=== PATIENT | male | born 1945 | race Caucasian/White ===

== ENCOUNTER 2016-11-16 16:36 | Inpatient (IN) | payer MEDICARE, OTHER ==
[~2016-11-16] VITALS: Ht 175.3 cm; Wt 80.2 kg
[2016-11-16 20:00] VITALS: BP 124/69; PULSE 84; RESP 20; Ht 175.3 cm; Wt 80.2 kg
[2016-11-16 20:30] VITALS: BP 107/65; RESP 18
[2016-11-16] MEDS ORDERED: BISACODYL 10 MG SUPP PR PRN (20:30)
[2016-11-16] MEDS ORDERED: OXYCODONE/ACETAMINOPHEN (5/325) TAB PO PRN (20:30)
[2016-11-16] MEDS ORDERED: MAGNESIUM HYDROXIDE 30ML CUP PO PRN (20:30)
[2016-11-16] MEDS: DUTASTERIDE 0.5 MG CAP PO SCH (21:58)
[2016-11-16] MEDS: ATORVASTATIN 10 MG TAB PO SCH (21:58)
[2016-11-16] MEDS: DOCUSATE SODIUM 100 MG CAP PO SCH (21:58)
[2016-11-16] MEDS: PHENYTOIN 100 MG CAP PO SCH (21:58)
[2016-11-16] MEDS: SENNA TAB PO SCH (21:59)
[2016-11-17] LABS: ADD UMIC NO; UR ASCORBIC ACID NEGATIVE (NEGATIVE); UR BILIRUBIN (Dip) NEGATIVE (NEGATIVE); UR BLOOD (Dip) NEGATIVE (NEGATIVE); UR CLARITY CLEAR (CLEAR); UR COLOR YELLOW (YELLOW); UR GLUCOSE (Dip) NEGATIVE (NEGATIVE); UR KETONES (Dip) NEGATIVE (NEGATIVE); UR LEUKOCYTE ESTERASE (Dip) NEGATIVE Leu/ul (NEGATIVE); UR NITRITE (Dip) NEGATIVE (NEGATIVE); UR SPECIFIC GRAVITY (Dip) 1.015 (1.003-1.030); UR TOTAL PROTEIN (Dip) NEGATIVE (NEGATIVE); UR UROBILINOGEN (Dip) NEGATIVE (NEGATIVE)
[2016-11-17] MEDS: PHENYTOIN 100 MG CAP PO SCH ×3 (06:35→21:32)
[2016-11-17 07:30] VITALS: BP 151/67; RESP 18
[2016-11-17 07:41] LABS: BASOPHILS % 0.2 % (0.0-2.0); EOSINOPHILS # 0.3 10^3/ul (0.0-0.5); EOSINOPHILS % 2.4 % (0.0-7.0); HEMATOCRIT 27.5 % (42.0-52.0); HEMOGLOBIN 8.6 g/dl (14.0-18.0); LYMPHOCYTES # 1.1 10^3/ul (0.8-2.9); MEAN CORPUSCULAR HEMOGLOBIN 28.7 pg (29.0-33.0); MEAN CORPUSCULAR HGB CONC 31.3 g/dl (32.0-37.0); MEAN CORPUSCULAR VOLUME 91.7 fl (82.0-101.0); MEAN PLATELET VOLUME 9.4 fl (7.4-10.4); MONOCYTES % 7.7 % (0.0-11.0); NEUTROPHIL # 9.8 10^3/ul (1.6-7.5); PLATELET COUNT 494 10^3/UL (140-415); RED CELL DISTRIBUTION WIDTH 14.6 % (11.5-14.5); WHITE BLOOD COUNT 12.3 10^3/ul (4.8-10.8)
[2016-11-17 08:05] LABS: ALBUMIN 3.7 g/dl (3.3-4.9); ALBUMIN/GLOBULIN RATIO 1.27; BILIRUBIN,INDIRECT 0.2 mg/dl (0-1.1); BILIRUBIN,TOTAL 0.2 mg/dl (0.2-1.3); CALCIUM 9.4 mg/dl (8.4-10.2); CREATININE 0.9 mg/dl (0.61-1.24); POTASSIUM 4.3 mmol/L (3.5-5.1); TOTAL PROTEIN 6.6 g/dl (6.1-8.1)
--- NOTE | 2016-11-17 08:23 | CONS ---
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 Status post intubation 3. BPH 4. History of cervical fusion 5. History of bilateral hip surgery 6. Hypertension 7. Seizure disorder 8. Impairments in self-care, mobility and cognition. PLAN: The patient has been admitted for comprehensive interdisciplinary acute rehab and is anticipated to tolerate 3 hours of daily therapy in divided doses for at least 5/7 days a week. The treatment plan will include: 1. Physical therapy to focus on bed mobility, transfers, and household ambulation with the goal of having the patient reach a standby assist at the wheelchair level, minimal assist for ambulation. 2. Occupational therapy to focus on hygiene, grooming, dressing, bathing, and toileting activities with the goal of having the patient reach a standby assist level at the wheelchair level. 3. Speech therapy for full cognitive assessment and retraining in addition to dysphagia management with the goal of having the patient return to baseline cognition and meet nutritional needs by mouth. 4. Rehabilitation nursing for carryover of therapeutic interventions, the goal of continent of bowel and bladder, the goal of pain adequately managed on oral medications. ESTIMATED LENGTH OF STAY: 14 days. DISPOSITION GOAL: Home. Rehabilitation Barrier: Weakness Intervention for barrier: Interdisciplinary rehab care I acknowledge that I performed a full physical examination on this patient within 24 hours of admission to the rehabilitation unit and believe the patient is a good candidate for comprehensive interdisciplinary rehab care and is anticipated to make reasonable goals in a reasonable period of time as outlined above. Consultation Date/Type/Reason Admit Date/Time Nov 16, 2016 at 18:40 Type of Consultation: Rehabilitation Reason for Consultation Rehabilitation Post Admission Physician Evaluation Patient is a pleasant 71-year-old gentleman with a history of hypertension and BPH who is admitted for aortic aneurysm repair. Patient's postoperative course was notable for seizure activity and weakness. MRI was performed and demonstrated bilateral cortical infarct. Patient did require intubation and was successfully extubated. Patient noted to have significant impairments in self-care and mobility as compared to baseline and has been cleared to transfer to the rehabilitation unit for conference of interdisciplinary rehab care. Past Surgical History FUNCTIONAL HISTORY: Prior to recent events, he was independent in self-care tasks and mobility. Currently, patient requires moderate for self-care and mobility tasks. I have reviewed the preadmission screen and the patient's current functional status is consistent with the preadmission screen. SOCIAL HISTORY: The patient lives at home and hopes to return there upon discharge. Social History Smoking Status: Never smoker Exam/Review of Systems Vital Signs Vitals Vital Signs Date Time Temp Pulse Resp B/P Pulse Ox O2 Delivery O2 Flow Rate FiO2 11/16/16 20:30 97.8 85 18 107/65 92 11/16/16 20:00 Room Air Intake and Output 11/16/16 11/16/16 11/17/16 15:00 23:00 07:00 Intake Total 1350 ml Output Total 650 ml Balance 700 ml Exam PHYSICAL EXAMINATION: VITAL SIGNS: The patient is currently afebrile with stable vital signs. HEENT: The extraocular motions are intact. Oropharynx is clear. LUNGS: Clear anteriorly. CARDIAC: S1, S2. ABDOMEN: Soft, nontender, positive bowel sounds. NEUROLOGIC: Patient is awake and alert, is oriented to person,place and time, will follow simple 1-step commands. He demonstrate good strength in the left upper extremity 3+ strength in the left lower external 4+ strength in the right lower extremity, 2- minus strength in the right upper extremity. He has impaired dynamic balance Results Result Diagram: 11/17/16 0616 11/17/16 0616 Results 24 hrs Laboratory Tests Test 11/16/16 20:00 11/17/16 06:16 Urine Color YELLOW Urine Clarity CLEAR Urine pH 6.0 Urine Specific [place] 1.015 Urine Ketones NEGATIVE Urine Nitrite NEGATIVE Urine Bilirubin NEGATIVE Urine Urobilinogen NEGATIVE Urine Leukocyte Esterase NEGATIVE Urine Hemoglobin NEGATIVE Urine Glucose NEGATIVE Urine Total Protein NEGATIVE White Blood Count 12.3 H Red Blood Count 3.00 L Hemoglobin 8.6 L Hematocrit 27.5 L Mean Corpuscular Volume 91.7 Mean Corpuscular Hemoglobin 28.7 L Mean Corpuscular Hemoglobin Concent 31.3 L Red Cell Distribution Width 14.6 H Platelet Count 494 H Mean Platelet Volume 9.4 Neutrophils % 79.0 H Lymphocytes % 9.0 L Monocytes % 7.7 Eosinophils % 2.4 Basophils % 0.2 Nucleated Red Blood Cells % 0.0 Neutrophils # 9.8 H Lymphocytes # 1.1 Monocytes # 1.0 H Eosinophils # 0.3 Basophils # 0.0 Nucleated Red Blood Cells # 0.0 Sodium Level 143 Potassium Level 4.3 Chloride Level 107 Carbon Dioxide Level 22 Anion Gap 18 H Blood Urea Nitrogen 15 Creatinine 0.90 Glucose Level 109 Calcium Level 9.4 Total Bilirubin 0.2 Direct Bilirubin 0.00 Indirect Bilirubin 0.2 Aspartate Amino Transf (AST/SGOT) 69 H Alanine Aminotransferase (ALT/SGPT) 104 H Alkaline Phosphatase 140 H Total Protein 6.6 Albumin 3.7 Globulin 2.90 Albumin/Globulin Ratio 1.27 Medications Medications Current Medications Aspirin (Aspirin) 81 mg DAILY PO ; Start 11/17/16 at 09:00 Atorvastatin Calcium (Lipitor) 10 mg DAILY@21 PO Last administered on 21:58; Admin Dose 10 MG; Start 11/16/16 at 21:00 Phenytoin (Dilantin) 100 mg Q8 PO Last administered on 11/17/16 06:35; Admin Dose 100 MG; Start 11/16/16 at 22:00 Dutasteride (Avodart) 0.5 mg HS PO Last administered on 11/16/16 21:58; Admin Dose 0.5 MG; Start 11/16/16 at 21:00 Escitalopram Oxalate (Lexapro) 10 mg DAILY@13 PO ; Start 11/17/16 at 13:00 Oxycodone/ Acetaminophen (Percocet (5/ 325)) 1 tab Q4H PRN PO PAIN; Start 11/16 at 20:30 Valsartan (Diovan) 160 mg DAILY PO ; Start 11/17/16 at 09:00 Hydrochlorothiazide (Hydrochlorothiazide) 25 mg DAILY PO ; Start 11/17/16 at 09: 00 Magnesium Hydroxide (Milk Of Mag) 30 ml Q12H PRN PO CONSTIPATION; Start at 20:30 Lactulose (Enulose) 20 gm Q24H PRN PO CONSTIPATION; Start 11/16/16 at 20:30 Senna (Senokot) 1 tab HS PO Last administered on 11/16/16 21:59; Admin Dose 1 TAB; Start 11/16/16 at 21:00 Docusate Sodium (Colace) 100 mg BID PO Last administered on 11/16/16 21:58; Admin Dose 100 MG; Start 11/16/16 at 21:00 Acetaminophen (Tylenol Tab) 650 mg Q4H PRN PO PAIN; Start 11/16/16 at 20:30 Bisacodyl (Dulcolax Supp) 10 mg Q24H PRN [place] CONSTIPATION; Start 11/16/16 at 20: 30 HERNANDEZ PASTRANA MD Nov 17, 2016 08:23
[2016-11-17] MEDS: ASPIRIN 81 MG TAB PO SCH (08:50)
[2016-11-17] MEDS: DOCUSATE SODIUM 100 MG CAP PO SCH ×2 (08:50→21:32)
[2016-11-17] MEDS: VALSARTAN 160 MG TAB PO SCH (08:51)
[2016-11-17] MEDS: HYDROCHLOROTHIAZIDE 25 MG TAB PO SCH (08:52)
--- NOTE | 2016-11-17 10:23 | HP ---
Date/Time of Note Date/Time of Note DATE: 11/17/16 TIME: 10:22 Assessment/Plan VTE Prophylaxis VTE Prophylaxis Intervention: ambulation Lines/Catheters Urinary Cath still in place: No Assessment/Plan Assessment/Plan 1. 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 Plan is to continue current treatment plan continue medical management continue low-dose aspirin continue PT OT per acute rehab 2. Hypertension. Blood pressure control. Continue current blood pressure regimen 3. Dyslipidemia continue statin therapy 4. Aortic aneurysm status post surgical repair 5. BPH continue medical management 6. Seizure. Continue Dilantin 7. Depression continue Lexapro 8 GI DVT prophylaxis. Continue PPI and SCDs 9 mild leukocytosis. Recheck CBC monitor follow-up urine call 10. Anemia monitor H&H levels HPI/ROS Admit Date/Time Admit Date/Time Nov 16, 2016 at 18:40 Hx of Present Illness Acute CVA 71-year-old male who underwent a Lucius procedure for ascending aortic aneurysm. Following the procedure patient noted to have atelectasis. Patient had MRI of the brain which showed distal cortical infarct bilaterally. The patient also noted to have severe right sided weakness of the upper extremity moderate weakness of the left lower extremity. The patient went into respiratory failure was subsequently intubated. The patient was eventually stabilized extubated. The patient was seen by neurology. He was eventually stabilized and then transferred to [facility] on acute rehab for continued care. Upon my evaluation at this time patient at this time currently stable complaining about weakness. But denies any fevers chills nausea vomiting ROS 14 point review of systems conducted pertinent positives stated in HPI PMH/Family/Social Past Medical History Per HPI Past Surgical History Status post aortic aneurysm repair Social History Smoking Status: Never smoker Exam/Review of Systems Vital Signs Vitals Vital Signs Date Time Temp Pulse Resp B/P Pulse Ox O2 Delivery O2 Flow Rate FiO2 11/16/16 20:30 97.8 85 18 107/65 92 11/16/16 20:00 Room Air Intake and Output 11/16/16 11/16/16 11/17/16 15:00 23:00 07:00 Intake Total 1350 ml Output Total 650 ml Balance 700 ml Exam Exam HEENT head is normocephalic pupils are reactive to light Cardiovascular heart is regular rate Lungs show diminished breath sounds at bases otherwise clear Abdomen soft nontender palpation rebound Extremities are negative for clubbing cyanosis no edema Dermatologically no rashes Musculoskeletal no joint effusion Neurologically patient has weakness right upper extremity left lower extremity. Labs Result Diagram: 11/17/16 0616 11/17/16 0616 Medications Medications Current Medications Aspirin (Aspirin) 81 mg DAILY PO Last administered on 11/17/16 08:50; Admin Dose 81 MG; Start 11/17/16 at 09:00 Atorvastatin Calcium (Lipitor) 10 mg DAILY@21 PO Last administered on 21:58; Admin Dose 10 MG; Start 11/16/16 at 21:00 Phenytoin (Dilantin) 100 mg Q8 PO Last administered on 11/17/16 06:35; Admin Dose 100 MG; Start 11/16/16 at 22:00 Dutasteride (Avodart) 0.5 mg HS PO Last administered on 11/16/16 21:58; Admin Dose 0.5 MG; Start 11/16/16 at 21:00 Escitalopram Oxalate (Lexapro) 10 mg DAILY@13 PO ; Start 11/17/16 at 13:00 Oxycodone/ Acetaminophen (Percocet (5/ 325)) 1 tab Q4H PRN PO PAIN; Start 11/16 at 20:30 Valsartan (Diovan) 160 mg DAILY PO Last administered on 11/17/16 08:51; Admin Dose 160 MG; Start 11/17/16 at 09:00 Hydrochlorothiazide (Hydrochlorothiazide) 25 mg DAILY PO Last administered on 08:52; Admin Dose 25 MG; Start 11/17/16 at 09:00 Magnesium Hydroxide (Milk Of Mag) 30 ml Q12H PRN PO CONSTIPATION; Start at 20:30 Lactulose (Enulose) 20 gm Q24H PRN PO CONSTIPATION; Start 11/16/16 at 20:30 Senna (Senokot) 1 tab HS PO Last administered on 11/16/16 21:59; Admin Dose 1 TAB; Start 11/16/16 at 21:00 Docusate Sodium (Colace) 100 mg BID PO Last administered on 11/17/16 08:50; Admin Dose 100 MG; Start 11/16/16 at 21:00 Acetaminophen (Tylenol Tab) 650 mg Q4H PRN PO PAIN; Start 11/16/16 at 20:30 Bisacodyl (Dulcolax Supp) 10 mg Q24H PRN [place] CONSTIPATION; Start 11/16/16 at 20: 30 WILFREDO HALLMAN DO Nov 17, 2016 10:23
[2016-11-17] MEDS: ESCITALOPRAM 10 MG TAB PO SCH (14:06)
[2016-11-17 20:12] VITALS: BP 128/65; RESP 18
[2016-11-17] MEDS: SENNA TAB PO SCH (21:00)
[2016-11-17] MEDS: DUTASTERIDE 0.5 MG CAP PO SCH (21:31)
[2016-11-17] MEDS: ATORVASTATIN 10 MG TAB PO SCH (21:32)
[2016-11-18] MEDS: PHENYTOIN 100 MG CAP PO SCH ×3 (06:41→22:31)
[2016-11-18 07:24] LABS: CALCIUM 9.7 mg/dl (8.4-10.2); CREATININE 0.97 mg/dl (0.61-1.24); MAGNESIUM 2.3 mg/dl (1.7-2.5); PHOSPHORUS 3.8 mg/dl (2.5-4.9); POTASSIUM 3.9 mmol/L (3.5-5.1)
[2016-11-18 08:18] LABS: BASOPHILS % 0.3 % (0.0-2.0); EOSINOPHILS # 0.3 10^3/ul (0.0-0.5); EOSINOPHILS % 1.8 % (0.0-7.0); HEMATOCRIT 28.7 % (42.0-52.0); HEMOGLOBIN 9.3 g/dl (14.0-18.0); LYMPHOCYTES % 6.7 % (15.0-51.0); MEAN CORPUSCULAR HEMOGLOBIN 29.2 pg (29.0-33.0); MEAN CORPUSCULAR HGB CONC 32.4 g/dl (32.0-37.0); MEAN CORPUSCULAR VOLUME 90.3 fl (82.0-101.0); MEAN PLATELET VOLUME 9.4 fl (7.4-10.4); MONOCYTES % 6.9 % (0.0-11.0); NEUTROPHIL # 12.1 10^3/ul (1.6-7.5); NEUTROPHILS % 83.1 % (39.0-77.0); PLATELET COUNT 574 10^3/UL (140-415); RED BLOOD COUNT 3.18 10^6/ul (4.70-6.10); RED CELL DISTRIBUTION WIDTH 14.2 % (11.5-14.5); WHITE BLOOD COUNT 14.6 10^3/ul (4.8-10.8)
[2016-11-18 08:59] LABS: ADD SCAN DIFF NO
[2016-11-18] MEDS: DOCUSATE SODIUM 100 MG CAP PO SCH ×2 (09:05→20:36)
[2016-11-18] MEDS: ASPIRIN 81 MG TAB PO SCH (09:06)
[2016-11-18 09:10] VITALS: BP 103/61; RESP 18
[2016-11-18] MEDS: HYDROCHLOROTHIAZIDE 25 MG TAB PO SCH (09:10)
[2016-11-18] MEDS: VALSARTAN 160 MG TAB PO SCH (09:10)
--- NOTE | 2016-11-18 10:14 | PN ---
Date/Time of Note Date/Time of Note DATE: 11/18/16 TIME: 10:11 Assessment/Plan VTE Prophylaxis VTE Prophylaxis Intervention: ambulation Lines/Catheters Urinary Cath still in place: No Assessment/Plan Chief Complaint/Hosp Course 1. 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 Plan is to continue current treatment plan continue medical management continue low-dose aspirin continue PT OT per acute rehab 2. Hypertension. Blood pressure control. Continue current blood pressure regimen 3. Dyslipidemia continue statin therapy 4. Aortic aneurysm status post surgical repair 5. BPH continue medical management 6. Seizure. Continue Dilantin 7. Depression continue Lexapro 8 GI DVT prophylaxis. Continue PPI and SCDs 9 leukocytosis. -Etiology unclear, possibly reactive, low suspicion for infection. Patient is afebrile. Urine culture is negative. -Repeat CBC in a.m. Check pro-calcitonin level -If no improvement will get an ID consult for evaluation 10. Anemia monitor H&H levels Problems: Subjective 24 Hr Interval Summary Free Text/Dictation Patient clinically stable. No fever overnight. Patient denies any dysuria hematuria. No shortness of breath. Exam/Review of Systems Vital Signs Vitals Vital Signs Date Time Temp Pulse Resp B/P Pulse Ox O2 Delivery O2 Flow Rate FiO2 11/18/16 09:10 98.5 18 103/61 94 Room Air 11/17/16 20:12 89 Intake and Output 11/17/16 11/17/16 11/18/16 15:00 23:00 07:00 Intake Total 360 ml 840 ml 350 ml Output Total 250 ml 440 ml 602 ml Balance 110 ml 400 ml -252 ml Exam HEENT head is normocephalic pupils are reactive to light Cardiovascular heart is regular rate Lungs show diminished breath sounds at bases otherwise clear Abdomen soft nontender palpation rebound Extremities are negative for clubbing cyanosis no edema Dermatologically no rashes Musculoskeletal no joint effusion Neurologically patient has weakness right upper extremity left lower extremity. Results Result Diagram: 11/18/16 0635 11/18/16 0635 Results 24 hrs Laboratory Tests Test 11/18/16 06:35 White Blood Count 14.6 H Red Blood Count 3.18 L Hemoglobin 9.3 L Hematocrit 28.7 L Mean Corpuscular Volume 90.3 Mean Corpuscular Hemoglobin 29.2 Mean Corpuscular Hemoglobin Concent 32.4 Red Cell Distribution Width 14.2 Platelet Count 574 H Mean Platelet Volume 9.4 Neutrophils % 83.1 H Lymphocytes % 6.7 L Monocytes % 6.9 Eosinophils % 1.8 Basophils % 0.3 Nucleated Red Blood Cells % 0.0 Neutrophils # 12.1 H Lymphocytes # 1.0 Monocytes # 1.0 H Eosinophils # 0.3 Basophils # 0.0 Nucleated Red Blood Cells # 0.0 Sodium Level 143 Potassium Level 3.9 Chloride Level 104 Carbon Dioxide Level 22 Anion Gap 21 H Blood Urea Nitrogen 15 Creatinine 0.97 Glucose Level 108 Calcium Level 9.7 Phosphorus Level 3.8 Magnesium Level 2.3 Medications Medications Current Medications Aspirin (Aspirin) 81 mg DAILY PO Last administered on 11/18/16 09:06; Admin Dose 81 MG; Start 11/17/16 at 09:00 Atorvastatin Calcium (Lipitor) 10 mg DAILY@21 PO Last administered on 11/17/16 21:32; Admin Dose 10 MG; Start 11/16/16 at 21:00 Phenytoin (Dilantin) 100 mg Q8 PO Last administered on 11/18/16 06:41; Admin Dose 100 MG; Start 11/16/16 at 22:00 Dutasteride (Avodart) 0.5 mg HS PO Last administered on 11/17/16 21:31; Admin Dose 0.5 MG; Start 11/16/16 at 21:00 Escitalopram Oxalate (Lexapro) 10 mg DAILY@13 PO Last administered on 11/17/16 14:06; Admin Dose 10 MG; Start 11/17/16 at 13:00 Oxycodone/ Acetaminophen (Percocet (5/ 325)) 1 tab Q4H PRN PO PAIN; Start 11/16 at 20:30 Valsartan (Diovan) 160 mg DAILY PO Last administered on 11/18/16 09:10; Admin Dose 160 MG; Start 11/17/16 at 09:00 Hydrochlorothiazide (Hydrochlorothiazide) 25 mg DAILY PO Last administered on 09:10; Admin Dose 25 MG; Start 11/17/16 at 09:00 Magnesium Hydroxide (Milk Of Mag) 30 ml Q12H PRN PO CONSTIPATION; Start at 20:30 Lactulose (Enulose) 20 gm Q24H PRN PO CONSTIPATION; Start 11/16/16 at 20:30 Senna (Senokot) 1 tab HS PO Last administered on 11/16/16 21:59; Admin Dose 1 TAB; Start 11/16/16 at 21:00 Docusate Sodium (Colace) 100 mg BID PO Last administered on 11/18/16 09:05; Admin Dose 100 MG; Start 11/16/16 at 21:00 Acetaminophen (Tylenol Tab) 650 mg Q4H PRN PO PAIN; Start 11/16/16 at 20:30 Bisacodyl (Dulcolax Supp) 10 mg Q24H PRN [place] CONSTIPATION; Start 11/16/16 at 20: 30 WILFREDO HALLMAN DO Nov 18, 2016 10:14
[2016-11-18] MEDS: ESCITALOPRAM 10 MG TAB PO SCH (12:37)
[2016-11-18 20:00] VITALS: BP 109/68; RESP 20
[2016-11-18] MEDS: ACETAMINOPHEN 325 MG TAB PO PRN (20:36)
[2016-11-18] MEDS: SENNA TAB PO SCH (20:36)
[2016-11-18] MEDS: ATORVASTATIN 10 MG TAB PO SCH (20:36)
[2016-11-18] MEDS: DUTASTERIDE 0.5 MG CAP PO SCH (20:36)
[2016-11-18 22:02] LABS: UR BILIRUBIN (Dip) NEGATIVE (NEGATIVE); UR BLOOD (Dip) 1+ mg/dL (NEGATIVE); UR CLARITY CLEAR (CLEAR); UR COLOR YELLOW (YELLOW); UR GLUCOSE (Dip) NEGATIVE (NEGATIVE); UR KETONES (Dip) TRACE mg/dL (NEGATIVE); UR LEUKOCYTE ESTERASE (Dip) NEGATIVE Leu/ul (NEGATIVE); UR NITRITE (Dip) NEGATIVE (NEGATIVE); UR SPECIFIC GRAVITY (Dip) 1.014 (1.003-1.030); UR TOTAL PROTEIN (Dip) NEGATIVE (NEGATIVE); UR UROBILINOGEN (Dip) NEGATIVE (NEGATIVE)
[2016-11-18 22:03] LABS: ADD UMIC YES; UR ASCORBIC ACID NEGATIVE (NEGATIVE); UR MUCUS FEW /HPF (NONE SEEN); UR RBC 2 /HPF (0-5)
[2016-11-18] MEDS: CEFTRIAXONE 1 GM/50 ML (PMX) 50 ML IVPB SCH (22:31)
[2016-11-19] MEDS: PHENYTOIN 100 MG CAP PO SCH ×3 (06:01→21:11)
[2016-11-19 07:30] VITALS: BP 107/56; RESP 18
[2016-11-19 07:59] LABS: BASOPHILS % 0.3 % (0.0-2.0); EOSINOPHILS # 0.2 10^3/ul (0.0-0.5); EOSINOPHILS % 1.7 % (0.0-7.0); HEMOGLOBIN 9.8 g/dl (14.0-18.0); LYMPHOCYTES # 0.8 10^3/ul (0.8-2.9); LYMPHOCYTES % 5.9 % (15.0-51.0); MEAN CORPUSCULAR HEMOGLOBIN 28.7 pg (29.0-33.0); MEAN CORPUSCULAR HGB CONC 31.6 g/dl (32.0-37.0); MEAN CORPUSCULAR VOLUME 90.9 fl (82.0-101.0); MEAN PLATELET VOLUME 9.4 fl (7.4-10.4); NEUTROPHIL # 11.6 10^3/ul (1.6-7.5); NEUTROPHILS % 83.7 % (39.0-77.0); PLATELET COUNT 572 10^3/UL (140-415); RED BLOOD COUNT 3.41 10^6/ul (4.70-6.10); RED CELL DISTRIBUTION WIDTH 14.3 % (11.5-14.5); WHITE BLOOD COUNT 13.8 10^3/ul (4.8-10.8)
[2016-11-19 08:15] LABS: ADD SCAN DIFF NO
[2016-11-19 08:40] LABS: CALCIUM 9.8 mg/dl (8.4-10.2); CREATININE 0.98 mg/dl (0.61-1.24); POTASSIUM 3.7 mmol/L (3.5-5.1)
[2016-11-19] MEDS: ASPIRIN 81 MG TAB PO SCH (09:00)
[2016-11-19] MEDS: DOCUSATE SODIUM 100 MG CAP PO SCH ×2 (09:00→21:10)
[2016-11-19] MEDS: HYDROCHLOROTHIAZIDE 25 MG TAB PO SCH (09:01)
[2016-11-19] MEDS: VALSARTAN 160 MG TAB PO SCH (09:01)
--- NOTE | 2016-11-19 09:09 | CONS ---
Date/Time of Note Date/Time of Note DATE: 11/19/16 TIME: 09:08 Consult Date/Type/Reason Admit Date/Time Nov 16, 2016 at 18:40 Initial Consult Date Type of Consultation: Rehabilitation Objective Vital Signs Date Time Temp Pulse Resp B/P Pulse Ox O2 Delivery O2 Flow Rate FiO2 11/19/16 05:00 99.7 11/18/16 20:00 88 20 109/68 94 11/18/16 09:10 Room Air Intake and Output 11/18/16 11/18/16 11/19/16 15:00 23:00 07:00 Intake Total 480 ml 170 ml Output Total 850 ml Balance 480 ml -680 ml INTERDISCIPLINARY TEAM CONFERENCE BOWEL- Cont BLADDER-Cont SKIN- intact OT- DRESSING-min/mod BATHING-min/mod TOILETING-min/mod PT- BED MOBILITY-mod TRANSFERS-mod AMBULATION-mod 60 feet SPEECH- COGNITION DYPHAGIA A/P- Interdisciplinary team conference held today. Please see interdisciplinary sheet. Working toward d.c. on 11/30 with post discharge follow up of physical therapy, occupational therapy. Results/Medications Result Diagram: 11/19/16 0625 11/19/16 0625 Results 24 hrs Laboratory Tests Test 11/18/16 19:00 11/19/16 06:25 Urine Color YELLOW Urine Clarity CLEAR Urine pH 5.0 Urine Specific [place] 1.014 Urine Ketones TRACE A Urine Nitrite NEGATIVE Urine Bilirubin NEGATIVE Urine Urobilinogen NEGATIVE Urine Leukocyte Esterase NEGATIVE Urine Microscopic RBC 2 Urine Microscopic WBC 1 Urine Mucus FEW A Urine Hemoglobin 1+ H Urine Glucose NEGATIVE Urine Total Protein NEGATIVE White Blood Count 13.8 H Red Blood Count 3.41 L Hemoglobin 9.8 L Hematocrit 31.0 L Mean Corpuscular Volume 90.9 Mean Corpuscular Hemoglobin 28.7 L Mean Corpuscular Hemoglobin Concent 31.6 L Red Cell Distribution Width 14.3 Platelet Count 572 H Mean Platelet Volume 9.4 Neutrophils % 83.7 H Lymphocytes % 5.9 L Monocytes % 7.0 Eosinophils % 1.7 Basophils % 0.3 Nucleated Red Blood Cells % 0.0 Neutrophils # 11.6 H Lymphocytes # 0.8 Monocytes # 1.0 H Eosinophils # 0.2 Basophils # 0.0 Nucleated Red Blood Cells # 0.0 Sodium Level 142 Potassium Level 3.7 Chloride Level 102 Carbon Dioxide Level 22 Anion Gap 22 H Blood Urea Nitrogen 19 Creatinine 0.98 Glucose Level 104 Calcium Level 9.8 Medications Current Medications Aspirin (Aspirin) 81 mg DAILY PO Last administered on 11/19/16 09:00; Admin Dose 81 MG; Start 11/17/16 at 09:00 Atorvastatin Calcium (Lipitor) 10 mg DAILY@21 PO Last administered on 11/18/16 20:36; Admin Dose 10 MG; Start 11/16/16 at 21:00 Phenytoin (Dilantin) 100 mg Q8 PO Last administered on 11/19/16 06:01; Admin Dose 100 MG; Start 11/16/16 at 22:00 Dutasteride (Avodart) 0.5 mg HS PO Last administered on 11/18/16 20:36; Admin Dose 0.5 MG; Start 11/16/16 at 21:00 Escitalopram Oxalate (Lexapro) 10 mg DAILY@13 PO Last administered on 11/18/16 12:37; Admin Dose 10 MG; Start 11/17/16 at 13:00 Oxycodone/ Acetaminophen (Percocet (5/ 325)) 1 tab Q4H PRN PO PAIN; Start 11/16 at 20:30 Valsartan (Diovan) 160 mg DAILY PO Last administered on 11/19/16 09:01; Admin Dose 160 MG; Start 11/17/16 at 09:00 Hydrochlorothiazide (Hydrochlorothiazide) 25 mg DAILY PO Last administered on 09:01; Admin Dose 25 MG; Start 11/17/16 at 09:00 Magnesium Hydroxide (Milk Of Mag) 30 ml Q12H PRN PO CONSTIPATION; Start at 20:30 Lactulose (Enulose) 20 gm Q24H PRN PO CONSTIPATION; Start 11/16/16 at 20:30 Senna (Senokot) 1 tab HS PO Last administered on 11/18/16 20:36; Admin Dose 1 TAB; Start 11/16/16 at 21:00 Docusate Sodium (Colace) 100 mg BID PO Last administered on 11/19/16 09:00; Admin Dose 100 MG; Start 11/16/16 at 21:00 Acetaminophen (Tylenol Tab) 650 mg Q4H PRN PO PAIN Last administered on 20:36; Admin Dose 650 MG; Start 11/16/16 at 20:30 Bisacodyl 10 mg 10 mg Q24H PRN [place] CONSTIPATION; Start 11/16/16 at 20:30 Ceftriaxone Sodium (Rocephin) 50 ml @ 100 mls/hr Q24H IVPB Last administered on 11/18/16t 22:31; Admin Dose 100 MLS/HR; Start 11/18/16 at 21:00 HERNANDEZ PASTRANA MD Nov 19, 2016 09:09
--- NOTE | 2016-11-19 09:51 | RADRPT ---
PROCEDURE: XR Chest 1 view. CLINICAL INDICATION: Shortness of breath and fever. TECHNIQUE: AP views of the chest were obtained. COMPARISON: None. FINDINGS: The heart is large. Calcified atherosclerosis is noted in the aorta. Median sternotomy wires overli e lie the heart. Retrocardiac opacity is identified. The osseous structures are osteopenic, but ap pear grossly intact. Cervical spine fusion is noted. IMPRESSION: Cardiomegaly with calcified atherosclerosis in the aorta. Retrocardiac opacity that may reflect left lower lobe atelectasis or infiltrate combined with small pleural effusion. RPTAT: AA .Joseph Estrella MD, MD Date Time Electronically viewed and signed by .Joseph Estrella MD, MD on 11/19/2016 09:51 .P/
--- NOTE | 2016-11-19 12:25 | PN ---
Date/Time of Note Date/Time of Note DATE: 11/19/16 TIME: 12:23 Assessment/Plan VTE Prophylaxis VTE Prophylaxis Intervention: other Lines/Catheters IV C[facility] Type ([facility] Saline Lock Urinary Cath still in place: No Assessment/Plan Chief Complaint/Hosp Course 1. Fever, Sirs rule out sepsis. -Source unclear possible UTI. -Patient started on empiric antibiotics. Blood cultures urine cultures chest x- ray pending. -ID consult placed with Dr. Lancaster. -Patient clinically improving monitor closely 2. 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 Plan is to continue current treatment plan continue medical management continue low-dose aspirin continue PT OT per acute rehab 2. Hypertension. Blood pressure control. Continue current blood pressure regimen 3. Dyslipidemia continue statin therapy 4. Aortic aneurysm status post surgical repair 5. BPH continue medical management 6. Seizure. Continue Dilantin 7. Depression continue Lexapro 8 GI DVT prophylaxis. Continue PPI and SCDs 10. Anemia monitor H&H levels Problems: Subjective 24 Hr Interval Summary Free Text/Dictation Patient with fever last night and dysuria with hematuria. Started on empiric antibiotics. No other events noted. Patient is clinically feeling better this morning. Exam/Review of Systems Vital Signs Vitals Vital Signs Date Time Temp Pulse Resp B/P Pulse Ox O2 Delivery O2 Flow Rate FiO2 11/19/16 05:00 99.7 11/18/16 20:00 88 20 109/68 94 11/18/16 09:10 Room Air Intake and Output 11/18/16 11/18/16 11/19/16 15:00 23:00 07:00 Intake Total 480 ml 170 ml Output Total 850 ml Balance 480 ml -680 ml Exam HEENT head is normocephalic pupils are reactive to light Cardiovascular heart is regular rate Lungs show diminished breath sounds at bases otherwise clear Abdomen soft nontender palpation rebound Extremities are negative for clubbing cyanosis no edema Dermatologically no rashes Musculoskeletal no joint effusion Neurologically patient has weakness right upper extremity left lower extremity. Results Result Diagram: 11/19/16 0625 11/19/16 0625 Results 24 hrs Laboratory Tests Test 11/18/16 19:00 11/19/16 06:25 Urine Color YELLOW Urine Clarity CLEAR Urine pH 5.0 Urine Specific [place] 1.014 Urine Ketones TRACE A Urine Nitrite NEGATIVE Urine Bilirubin NEGATIVE Urine Urobilinogen NEGATIVE Urine Leukocyte Esterase NEGATIVE Urine Microscopic RBC 2 Urine Microscopic WBC 1 Urine Mucus FEW A Urine Hemoglobin 1+ H Urine Glucose NEGATIVE Urine Total Protein NEGATIVE White Blood Count 13.8 H Red Blood Count 3.41 L Hemoglobin 9.8 L Hematocrit 31.0 L Mean Corpuscular Volume 90.9 Mean Corpuscular Hemoglobin 28.7 L Mean Corpuscular Hemoglobin Concent 31.6 L Red Cell Distribution Width 14.3 Platelet Count 572 H Mean Platelet Volume 9.4 Neutrophils % 83.7 H Lymphocytes % 5.9 L Monocytes % 7.0 Eosinophils % 1.7 Basophils % 0.3 Nucleated Red Blood Cells % 0.0 Neutrophils # 11.6 H Lymphocytes # 0.8 Monocytes # 1.0 H Eosinophils # 0.2 Basophils # 0.0 Nucleated Red Blood Cells # 0.0 Sodium Level 142 Potassium Level 3.7 Chloride Level 102 Carbon Dioxide Level 22 Anion Gap 22 H Blood Urea Nitrogen 19 Creatinine 0.98 Glucose Level 104 Calcium Level 9.8 Medications Medications Current Medications Aspirin (Aspirin) 81 mg DAILY PO Last administered on 11/19/16 09:00; Admin Dose 81 MG; Start 11/17/16 at 09:00 Atorvastatin Calcium (Lipitor) 10 mg DAILY@21 PO Last administered on 11/18/16 20:36; Admin Dose 10 MG; Start 11/16/16 at 21:00 Phenytoin (Dilantin) 100 mg Q8 PO Last administered on 11/19/16 06:01; Admin Dose 100 MG; Start 11/16/16 at 22:00 Dutasteride (Avodart) 0.5 mg HS PO Last administered on 11/18/16 20:36; Admin Dose 0.5 MG; Start 11/16/16 at 21:00 Escitalopram Oxalate (Lexapro) 10 mg DAILY@13 PO Last administered on 11/18/16 12:37; Admin Dose 10 MG; Start 11/17/16 at 13:00 Oxycodone/ Acetaminophen (Percocet (5/ 325)) 1 tab Q4H PRN PO PAIN; Start 11/16 at 20:30 Valsartan (Diovan) 160 mg DAILY PO Last administered on 11/19/16 09:01; Admin Dose 160 MG; Start 11/17/16 at 09:00 Hydrochlorothiazide (Hydrochlorothiazide) 25 mg DAILY PO Last administered on 09:01; Admin Dose 25 MG; Start 11/17/16 at 09:00 Magnesium Hydroxide (Milk Of Mag) 30 ml Q12H PRN PO CONSTIPATION; Start at 20:30 Lactulose (Enulose) 20 gm Q24H PRN PO CONSTIPATION; Start 11/16/16 at 20:30 Senna (Senokot) 1 tab HS PO Last administered on 11/18/16 20:36; Admin Dose 1 TAB; Start 11/16/16 at 21:00 Docusate Sodium (Colace) 100 mg BID PO Last administered on 11/19/16 09:00; Admin Dose 100 MG; Start 11/16/16 at 21:00 Acetaminophen (Tylenol Tab) 650 mg Q4H PRN PO PAIN Last administered on 20:36; Admin Dose 650 MG; Start 11/16/16 at 20:30 Bisacodyl 10 mg 10 mg Q24H PRN [place] CONSTIPATION; Start 11/16/16 at 20:30 Ceftriaxone Sodium (Rocephin) 50 ml @ 100 mls/hr Q24H IVPB Last administered on 11/18/16 22:31; Admin Dose 100 MLS/HR; Start 11/18/16 at 21:00 WILFREDO HALLMAN DO Nov 19, 2016 12:25
[2016-11-19] MEDS: ESCITALOPRAM 10 MG TAB PO SCH (12:48)
[2016-11-19 20:00] VITALS: BP 113/55; RESP 18
[2016-11-19] MEDS: CEFTRIAXONE 1 GM/50 ML (PMX) 50 ML IVPB SCH (21:08)
[2016-11-19] MEDS: DUTASTERIDE 0.5 MG CAP PO SCH (21:10)
[2016-11-19] MEDS: SENNA TAB PO SCH (21:10)
[2016-11-19] MEDS: ATORVASTATIN 10 MG TAB PO SCH (21:10)
[2016-11-20] MEDS: PHENYTOIN 100 MG CAP PO SCH ×3 (06:27→20:43)
[2016-11-20 07:38] VITALS: BP 90/60; RESP 18
[2016-11-20] MEDS: DOCUSATE SODIUM 100 MG CAP PO SCH ×2 (09:35→20:44)
[2016-11-20] MEDS: ASPIRIN 81 MG TAB PO SCH (09:35)
--- NOTE | 2016-11-20 10:00 | PN ---
Date/Time of Note Date/Time of Note DATE: 11/20/16 TIME: 09:54 Assessment/Plan VTE Prophylaxis VTE Prophylaxis Intervention: other Lines/Catheters [facility]from [facility] Saline Lock Urinary Cath still in place: No Assessment/Plan Chief Complaint/Hosp Course 1. Fever, Sirs rule out sepsis. -Source unclear ? Viral -Patient started on empiric antibiotics. - Blood cultures, urine cultures negative today. Chest x-ray shows possible infiltrate versus atelectasis -ID consult placed with Dr. Lancaster. -Patient clinically improving monitor closely, consider DC and antibiotics in the next 1-2 days if cultures remain negative 2. 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 Plan is to continue current treatment plan continue medical management continue low-dose aspirin continue PT OT per acute rehab 2. Hypertension. -Now with episodes of hypotension. Will de-escalate blood pressure medications, -DC hydrochlorothiazide -lower valsartan to 80 mg daily with 3. Dyslipidemia continue statin therapy 4. Aortic aneurysm status post surgical repair 5. BPH continue medical management 6. Seizure. Continue Dilantin 7. Depression continue Lexapro 8 GI DVT prophylaxis. Continue PPI and SCDs 10. Anemia monitor H&H levels Problems: Subjective 24 Hr Interval Summary Free Text/Dictation Patient is lightheaded this morning. Noted to have episodes of low blood pressure. Noted to have episodes of orthostatic hypotension. Discussed with him about de-escalating his blood pressure medications. No fever noted overnight. Exam/Review of Systems Vital Signs Vitals Vital Signs Date Time Temp Pulse Resp B/P Pulse Ox O2 Delivery O2 Flow Rate FiO2 11/20/16 07:38 99.2 80 18 90/60 94 11/18/16 09:10 Room Air Intake and Output 11/19/16 11/19/16 11/20/16 15:00 23:00 07:00 Intake Total 470 ml 400 ml Output Total 540 ml 750 ml Balance -70 ml -350 ml Exam HEENT head is normocephalic pupils are reactive to light Cardiovascular heart is regular rate Lungs show diminished breath sounds at bases otherwise clear Abdomen soft nontender palpation rebound Extremities are negative for clubbing cyanosis no edema Dermatologically no rashes Musculoskeletal no joint effusion Neurologically patient has weakness right upper extremity left lower extremity. Results Result Diagram: 11/19/1625 7/3/17 0625 Medications Medications Current Medications Aspirin (Aspirin) 81 mg DAILY PO Last administered on 11/20/16 09:35; Admin Dose 81 MG; Start 11/17/16 at 09:00 Atorvastatin Calcium (Lipitor) 10 mg DAILY@21 PO Last administered on 11/19/16 21:10; Admin Dose 10 MG; Start 11/16/16 at 21:00 Phenytoin (Dilantin) 100 mg Q8 PO Last administered on 11/20/16 06:27; Admin Dose 100 MG; Start 11/16/16 at 22:00 Dutasteride (Avodart) 0.5 mg HS PO Last administered on 11/19/16 21:10; Admin Dose 0.5 MG; Start 11/16/16 at 21:00 Escitalopram Oxalate (Lexapro) 10 mg DAILY@13 PO Last administered on 11/19/16 12:48; Admin Dose 10 MG; Start 11/17/16 at 13:00 Oxycodone/ Acetaminophen (Percocet (5/ 325)) 1 tab Q4H PRN PO PAIN; Start 11/16 at 20:30 Valsartan (Diovan) 160 mg DAILY PO Last administered on 11/19/16 09:01; Admin Dose 160 MG; Start 11/17/16 at 09:00 Hydrochlorothiazide (Hydrochlorothiazide) 25 mg DAILY PO Last administered on 09:01; Admin Dose 25 MG; Start 11/17/16 at 09:00 Magnesium Hydroxide (Milk Of Mag) 30 ml Q12H PRN PO CONSTIPATION; Start at 20:30 Lactulose (Enulose) 20 gm Q24H PRN PO CONSTIPATION; Start 11/16/16 at 20:30 Senna (Senokot) 1 tab HS PO Last administered on 11/19/16 21:10; Admin Dose 1 TAB; Start 11/16/16 at 21:00 Docusate Sodium (Colace) 100 mg BID PO Last administered on 11/20/16 09:35; Admin Dose 100 MG; Start 11/16/16 at 21:00 Acetaminophen (Tylenol Tab) 650 mg Q4H PRN PO PAIN Last administered on 20:36; Admin Dose 650 MG; Start 11/16/16 at 20:30 Bisacodyl 10 mg 10 mg Q24H PRN [place] CONSTIPATION; Start 11/16/16 at 20:30 Ceftriaxone Sodium (Rocephin) 50 ml @ 100 mls/hr Q24H IVPB Last administered on 11/19/16t 21:08; Admin Dose 100 MLS/HR; Start 11/18/16 at 21:00 WILFREDO HALLMAN DO Nov 20, 2016 10:00
[2016-11-20] MEDS ORDERED: SOD CHLORIDE 0.9% 1,000 ML IV ONE (10:30)
--- NOTE | 2016-11-20 10:42 | CONS ---
Date/Time of Note Date/Time of Note DATE: 11/20/16 TIME: 10:42 Consult Date/Type/Reason Admit Date/Time Nov 16, 2016 at 18:40 Type of Consultation: Rehabilitation Subjective Orthostatic this morning Objective Lungs clear anteriorly abdomen soft Min assist to moderate assist Vital Signs Date Time Temp Pulse Resp B/P Pulse Ox O2 Delivery O2 Flow Rate FiO2 11/20/16 07:38 99.2 80 18 90/60 94 11/18/16 09:10 Room Air Intake and Output 11/19/16 11/19/16 11/20/16 15:00 23:00 07:00 Intake Total 470 ml 400 ml Output Total 540 ml 750 ml Balance -70 ml -350 ml Results/Medications Result Diagram: 11/19/1625 11/19/16624 Medications Current Medications Aspirin (Aspirin) 81 mg DAILY PO Last administered on 11/20/16 09:35; Admin Dose 81 MG; Start 11/17/16 at 09:00 Atorvastatin Calcium (Lipitor) 10 mg DAILY@21 PO Last administered on 11/19/16 21:10; Admin Dose 10 MG; Start 11/16/16 at 21:00 Phenytoin (Dilantin) 100 mg Q8 PO Last administered on 11/20/16 06:27; Admin Dose 100 MG; Start 11/16/16 at 22:00 Dutasteride (Avodart) 0.5 mg HS PO Last administered on 11/19/16 21:10; Admin Dose 0.5 MG; Start 11/16/16 at 21:00 Escitalopram Oxalate (Lexapro) 10 mg DAILY@13 PO Last administered on 11/19/16 12:48; Admin Dose 10 MG; Start 11/17/16 at 13:00 Oxycodone/ Acetaminophen (Percocet (5/ 325)) 1 tab Q4H PRN PO PAIN; Start 11/16 at 20:30 Magnesium Hydroxide (Milk Of Mag) 30 ml Q12H PRN PO CONSTIPATION; Start at 20:30 Lactulose (Enulose) 20 gm Q24H PRN PO CONSTIPATION; Start 11/16/16 at 20:30 Senna (Senokot) 1 tab HS PO Last administered on 11/19/16 21:10; Admin Dose 1 TAB; Start 11/16/16 at 21:00 Docusate Sodium (Colace) 100 mg BID PO Last administered on 11/20/16 09:35; Admin Dose 100 MG; Start 11/16/16 at 21:00 Acetaminophen (Tylenol Tab) 650 mg Q4H PRN PO PAIN Last administered on 20:36; Admin Dose 650 MG; Start 11/16/16 at 20:30 Bisacodyl 10 mg 10 mg Q24H PRN [place] CONSTIPATION; Start 11/16/16 at 20:30 Ceftriaxone Sodium (Rocephin) 50 ml @ 100 mls/hr Q24H IVPB Last administered on 11/19/16 21:08; Admin Dose 100 MLS/HR; Start 11/18/16 at 21:00 Valsartan 80 mg 80 mg DAILY PO ; Start 11/21/16 at 09:00 Sodium Chloride 1,000 ml @ 1,000 mls/hr Q1H ONCE IV ; Start 11/20/16 at 10:30; Stop 11/20/16 at 11:29 Sodium Chloride (NS) 1,000 ml @ 50 mls/hr Q20H IV ; Start 11/20/16 at 10:30 Assessment/Plan Additional Assessment/Plan Rehabilitation - bilateral cortical infarct CVA with bilateral weakness right worse than left Continue treatment plan as tolerated Orthostatic hypotension-abdominal binder for out of bed; medication adjustment medication adjustment; IV fluid status post abdominal aortic aneurysm repair Status post intubation BPH History of cervical fusion History of bilateral hip surgery Hypertension Seizure disorder HERNANDEZ PASTRANA MD Nov 20, 2016 10:42
--- NOTE | 2016-11-20 11:33 | CONS ---
Date/Time of Note Date/Time of Note DATE: 11/20/16 TIME: 11:12 Consultation Date/Type/Reason Admit Date/Time Nov 16, 2016 at 18:40 Date of Consultation: Nov 20, 2016 Type of Consultation: Infectious disease Reason for Consultation Fever hematuria retrocardiac infiltrate in a 71-year-old white male admitted to rehab status post operative ascending aortic aneurysm repair complicated by bilateral cerebrovascular accident post operative. Referring Provider: MINA FELIX of Present Illness Patient is a 71-year-old white male who was admitted to rehab for rehabilitation from a bilateral cerebrovascular accident complicating aortic aneurysm repair postoperatively resulting in right upper extremity and left lower extremity weakness following a seizure postoperatively. On on 3while in the rehab [place] and having postural difficulties because of blood pressure and hydration problems patient developed hematuria from a Marti catheter spiked a temperature to 101.1 and a chest x-ray obtained at that time revealed a retrocardiac infiltrate left lower lobe. (Report from referring hospital indicates the patient had previous pneumonia in this area for which he was treated with 2 antibiotics including Zosyn. The patient states that he has a dry cough which sometimes suddenly produces clear sputum and chest pain when coughing because of his median sternotomy incision. He has benign prostatic hypertrophy but no hesitancy frequency or dysuria. His urinalysis was yellow clear specific gravity 1.01 for trace ketones 2 red cells 1 white cell and positive for urine hemoglobin. Patient was begun treatment with ceftriaxone 1 g IV daily on 11/19/2016. Patient is generally feeling well except for the previously mentioned symptoms and is eager to participate in his physical rehabilitation program. Past medical history: Ascending aortic aneurysm repair: Lucius procedure. Bilateral cerebrovascular accident Benign prostatic hypertrophy Hyperlipidemia Seizure disorder Hypertension Physical examination: Patient is alert oriented cooperative white male in no acute distress. blood pressure 96/70, pulse 64, respirations 18, afebrile. Pupils equal round react to light, extraocular movements are full the mouth has slightly thickened secretions and throat is clear. The neck is supple there is no jugular venous distention. There is a healing abrasion compatible with a BiPAP strap on the neck suboccipitally. Examination of the chest reveals rales right medial posterior lower lung field next to the spine. No wheezes. Heart. Regular quiet tones, no murmur. No gallop. Well-healing recent median sternotomy incision. Abdomen: Shaved. 2 cm healing groin incision lateral aspect right side. Bowel sounds present weakness right upper and left lower extremities. No edema. Diagnoses: Systemic inflammatory response Retrocardiac pneumonia Hematuria Status post operative Lucius procedure ascending aortic aneurysm repair Bilateral cerebrovascular accident postop with right upper extremity and left lower extremity weakness. Hypertension Hyperlipidemia Benign prostatic hypertrophy Seizure disorder Recommendation: Continue ceftriaxone 5 days Sputum culture I have seen this patient for Dr.Jerrold Tonny Salvador MD Social History Smoking Status: Never smoker Exam/Review of Systems Vital Signs Vitals Vital Signs Date Time Temp Pulse Resp B/P Pulse Ox O2 Delivery O2 Flow Rate FiO2 11/20/16 07:38 99.2 80 18 90/60 94 11/18/16 09:10 Room Air Intake and Output 11/19/16 11/19/16 11/20/16 15:00 23:00 07:00 Intake Total 470 ml 400 ml Output Total 540 ml 750 ml Balance -70 ml -350 ml Results Result Diagram: 11/19/1662411/19/16624 Medications Medications Current Medications Aspirin (Aspirin) 81 mg DAILY PO Last administered on 11/20/16 09:35; Admin Dose 81 MG; Start 11/17/16 at 09:00 Atorvastatin Calcium (Lipitor) 10 mg DAILY@21 PO Last administered on 11/19/16 21:10; Admin Dose 10 MG; Start 11/16/16 at 21:00 Phenytoin (Dilantin) 100 mg Q8 PO Last administered on 11/20/16 06:27; Admin Dose 100 MG; Start 11/16/16 at 22:00 Dutasteride (Avodart) 0.5 mg HS PO Last administered on 11/19/16 21:10; Admin Dose 0.5 MG; Start 11/16/16 at 21:00 Escitalopram Oxalate (Lexapro) 10 mg DAILY@13 PO Last administered on 11/19/16 12:48; Admin Dose 10 MG; Start 11/17/16 at 13:00 Oxycodone/ Acetaminophen (Percocet (5/ 325)) 1 tab Q4H PRN PO PAIN; Start 11/16 at 20:30 Magnesium Hydroxide (Milk Of Mag) 30 ml Q12H PRN PO CONSTIPATION; Start at 20:30 Lactulose (Enulose) 20 gm Q24H PRN PO CONSTIPATION; Start 11/16/16 at 20:30 Senna (Senokot) 1 tab HS PO Last administered on 11/19/16 21:10; Admin Dose 1 TAB; Start 11/16/16 at 21:00 Docusate Sodium (Colace) 100 mg BID PO Last administered on 11/20/16 09:35; Admin Dose 100 MG; Start 11/16/16 at 21:00 Acetaminophen (Tylenol Tab) 650 mg Q4H PRN PO PAIN Last administered on 20:36; Admin Dose 650 MG; Start 11/16/16 at 20:30 Bisacodyl 10 mg 10 mg Q24H PRN [place] CONSTIPATION; Start 11/16/16 at 20:30 Ceftriaxone Sodium (Rocephin) 50 ml @ 100 mls/hr Q24H IVPB Last administered on 11/19/16 21:08; Admin Dose 100 MLS/HR; Start 11/18/16 at 21:00 Valsartan 80 mg 80 mg DAILY PO ; Start 11/21/16 at 09:00 Sodium Chloride 1,000 ml @ 1,000 mls/hr Q1H ONCE IV Last administered on 10:42; Admin Dose 1,000 MLS/HR; Start 11/20/16 at 10:30; Stop 11/20/16 at 11: 29 Sodium Chloride (NS) 1,000 ml @ 50 mls/hr Q20H IV ; Start 11/20/16 at 10:30 Mariza SALVADOR MD Nov 20, 2016 11:32
[2016-11-20] MEDS: ESCITALOPRAM 10 MG TAB PO SCH (12:25)
[2016-11-20] MEDS: SOD CHLORIDE 0.9% 1,000 ML IV SCH (19:47)
[2016-11-20 20:00] VITALS: BP 109/66; RESP 18
[2016-11-20] MEDS: SENNA TAB PO SCH (20:43)
[2016-11-20] MEDS: DUTASTERIDE 0.5 MG CAP PO SCH (20:43)
[2016-11-20] MEDS: CEFTRIAXONE 1 GM/50 ML (PMX) 50 ML IVPB SCH (20:44)
[2016-11-20] MEDS: ATORVASTATIN 10 MG TAB PO SCH (20:44)
[2016-11-21] MEDS: SOD CHLORIDE 0.9% 1,000 ML IV SCH ×2 (06:30→21:02)
[2016-11-21] MEDS: PHENYTOIN 100 MG CAP PO SCH ×3 (06:34→21:03)
[2016-11-21 06:43] LABS: ADD SCAN DIFF NO
[2016-11-21 06:52] LABS: BASOPHILS % 0.4 % (0.0-2.0); EOSINOPHILS # 0.2 10^3/ul (0.0-0.5); EOSINOPHILS % 1.8 % (0.0-7.0); HEMATOCRIT 30.7 % (42.0-52.0); HEMOGLOBIN 9.5 g/dl (14.0-18.0); LYMPHOCYTES # 0.8 10^3/ul (0.8-2.9); LYMPHOCYTES % 7.3 % (15.0-51.0); MEAN CORPUSCULAR HEMOGLOBIN 28.4 pg (29.0-33.0); MEAN CORPUSCULAR HGB CONC 30.9 g/dl (32.0-37.0); MEAN CORPUSCULAR VOLUME 91.9 fl (82.0-101.0); MEAN PLATELET VOLUME 9.2 fl (7.4-10.4); MONOCYTE # 0.4 10^3/ul (0.3-0.9); MONOCYTES % 3.4 % (0.0-11.0); NEUTROPHIL # 8.8 10^3/ul (1.6-7.5); NEUTROPHILS % 85.8 % (39.0-77.0); PLATELET COUNT 497 10^3/UL (140-415); RED BLOOD COUNT 3.34 10^6/ul (4.70-6.10); RED CELL DISTRIBUTION WIDTH 14.1 % (11.5-14.5); WHITE BLOOD COUNT 10.3 10^3/ul (4.8-10.8)
[2016-11-21 07:24] LABS: CALCIUM 9.6 mg/dl (8.4-10.2); CREATININE 0.93 mg/dl (0.61-1.24); MAGNESIUM 2.3 mg/dl (1.7-2.5); PHOSPHORUS 3.1 mg/dl (2.5-4.9); POTASSIUM 3.8 mmol/L (3.5-5.1)
[2016-11-21 07:33] VITALS: BP 115/61; RESP 18
[2016-11-21] MEDS: DOCUSATE SODIUM 100 MG CAP PO SCH ×2 (08:05→21:04)
[2016-11-21] MEDS: ASPIRIN 81 MG TAB PO SCH (08:05)
[2016-11-21 08:10] VITALS: BP 77/55; RESP 18
[2016-11-21 08:44] VITALS: BP 102/58
[2016-11-21] MEDS ORDERED: VALSARTAN 80 MG TAB PO SCH (09:00)
--- NOTE | 2016-11-21 09:54 | PN ---
Date/Time of Note Date/Time of Note DATE: 11/21/16 TIME: 09:49 Assessment/Plan VTE Prophylaxis VTE Prophylaxis Intervention: other Lines/Catheters IV Catheter Type (from [facility]): Saline Lock Urinary Cath still in place: No Assessment/Plan Chief Complaint/Hosp Course 1. Fever, Sirs, ? sepsis -Source unclear ? Viral ? pna -Patient on antibiotics. - Blood cultures, urine cultures negative today. - Chest x-ray shows possible infiltrate versus atelectasis -Appreciate IDs recommendation -Patient clinically improving. 2. 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 Plan is to continue current treatment plan continue medical management continue low-dose aspirin continue PT OT per acute rehab 2. Hypotension, orthostatic -Improving with IV fluid -We will hold blood pressure medications. Continue another 24 hours of fluid 3. Dyslipidemia continue statin therapy 4. Aortic aneurysm status post surgical repair 5. BPH continue medical management 6. Seizure. Continue Dilantin 7. Depression continue Lexapro 8 GI DVT prophylaxis. Continue PPI and SCDs 10. Anemia monitor H&H levels Problems: Subjective 24 Hr Interval Summary Free Text/Dictation Patient received a bolus of IV fluids yesterday and has been on maintenance fluid. He is feeling better. Less dizzy when he walks. But still lethargic. Exam/Review of Systems Vital Signs Vitals Vital Signs Date Time Temp Pulse Resp B/P Pulse Ox O2 Delivery O2 Flow Rate FiO2 11/21/16 08:44 102/58 11/21/16 08:10 18 11/21/16 07:33 99.0 84 95 11/18/16 09:10 Room Air Intake and Output 11/20/16 11/20/16 11/21/16 15:00 23:00 07:00 Intake Total 1200 ml 1690 ml 720 ml Output Total 400 ml 200 ml 350 ml Balance 800 ml 1490 ml 370 ml Exam HEENT head is normocephalic pupils are reactive to light Cardiovascular heart is regular rate Lungs show diminished breath sounds at bases otherwise clear Abdomen soft nontender palpation rebound Extremities are negative for clubbing cyanosis no edema Dermatologically no rashes Musculoskeletal no joint effusion Neurologically patient has weakness right upper extremity left lower extremity. Results Result Diagram: 11/21/16 0600 11/21/16 0600 Results 24 hrs Laboratory Tests Test 11/21/16 06:00 White Blood Count 10.3 # Red Blood Count 3.34 L Hemoglobin 9.5 L Hematocrit 30.7 L Mean Corpuscular Volume 91.9 Mean Corpuscular Hemoglobin 28.4 L Mean Corpuscular Hemoglobin Concent 30.9 L Red Cell Distribution Width 14.1 Platelet Count 497 H Mean Platelet Volume 9.2 Neutrophils % 85.8 H Lymphocytes % 7.3 L Monocytes % 3.4 Eosinophils % 1.8 Basophils % 0.4 Nucleated Red Blood Cells % 0.0 Neutrophils # 8.8 H Lymphocytes # 0.8 Monocytes # 0.4 Eosinophils # 0.2 Basophils # 0.0 Nucleated Red Blood Cells # 0.0 Sodium Level 144 Potassium Level 3.8 Chloride Level 104 Carbon Dioxide Level 24 Anion Gap 20 H Blood Urea Nitrogen 18 Creatinine 0.93 Glucose Level 106 Calcium Level 9.6 Phosphorus Level 3.1 Magnesium Level 2.3 Medications Medications Current Medications Aspirin (Aspirin) 81 mg DAILY PO Last administered on 11/21/16 08:05; Admin Dose 81 MG; Start 11/17/16 at 09:00 Atorvastatin Calcium (Lipitor) 10 mg DAILY@21 PO Last administered on 11/20/16 20:44; Admin Dose 10 MG; Start 11/16/16 at 21:00 Phenytoin (Dilantin) 100 mg Q8 PO Last administered on 11/21/16 06:34; Admin Dose 100 MG; Start 11/16/16 at 22:00 Dutasteride (Avodart) 0.5 mg HS PO Last administered on 11/20/16 20:43; Admin Dose 0.5 MG; Start 11/16/16 at 21:00 Escitalopram Oxalate (Lexapro) 10 mg DAILY@13 PO Last administered on 11/20/16 12:25; Admin Dose 10 MG; Start 11/17/16 at 13:00 Oxycodone/ Acetaminophen (Percocet (5/ 325)) 1 tab Q4H PRN PO PAIN; Start 11/16 at 20:30 Magnesium Hydroxide (Milk Of Mag) 30 ml Q12H PRN PO CONSTIPATION; Start at 20:30 Lactulose (Enulose) 20 gm Q24H PRN PO CONSTIPATION; Start 11/16/16 at 20:30 Senna (Senokot) 1 tab HS PO Last administered on 11/20/16 20:43; Admin Dose 1 TAB; Start 11/16/16 at 21:00 Docusate Sodium (Colace) 100 mg BID PO Last administered on 11/21/16 08:05; Admin Dose 100 MG; Start 11/16/16 at 21:00 Acetaminophen (Tylenol Tab) 650 mg Q4H PRN PO PAIN Last administered on 20:36; Admin Dose 650 MG; Start 11/16/16 at 20:30 Bisacodyl 10 mg 10 mg Q24H PRN [place] CONSTIPATION; Start 11/16/16 at 20:30 Ceftriaxone Sodium (Rocephin) 50 ml @ 100 mls/hr Q24H IVPB Last administered on 11/20/16 20:44; Admin Dose 100 MLS/HR; Start 11/18/16 at 21:00 Valsartan 80 mg 80 mg DAILY PO ; Start 11/21/16 at 09:00 Sodium Chloride (NS) 1,000 ml @ 50 mls/hr Q20H IV Last administered on 19:47; Admin Dose 50 MLS/HR; Start 11/20/16 at 10:30 WILFREDO HALLMAN DO Nov 21, 2016 09:53
[2016-11-21 10:00] VITALS: BP 103/58
[2016-11-21 12:00] VITALS: BP 110/55
--- NOTE | 2016-11-21 12:00 | CONS ---
Date/Time of Note Date/Time of Note DATE: 11/21/16 TIME: 11:58 Consult Date/Type/Reason Admit Date/Time Nov 16, 2016 at 18:40 Type of Consultation: Infectious disease Ordering Provider: MINA FELIX DO Subjective Patient feeling better today Objective Abdomen soft Min assist ambulation Vital Signs Date Time Temp Pulse Resp B/P Pulse Ox O2 Delivery O2 Flow Rate FiO2 11/21/16 08:44 102/58 11/21/16 08:10 18 11/21/16 07:33 99.0 84 95 11/18/16 09:10 Room Air Intake and Output 11/20/16 11/20/16 11/21/16 15:00 23:00 07:00 Intake Total 1200 ml 1690 ml 720 ml Output Total 400 ml 200 ml 350 ml Balance 800 ml 1490 ml 370 ml Results/Medications Result Diagram: 11/21/16 0600 11/21/16 0600 Results 24 hrs Laboratory Tests Test 11/21/16 06:00 White Blood Count 10.3 # Red Blood Count 3.34 L Hemoglobin 9.5 L Hematocrit 30.7 L Mean Corpuscular Volume 91.9 Mean Corpuscular Hemoglobin 28.4 L Mean Corpuscular Hemoglobin Concent 30.9 L Red Cell Distribution Width 14.1 Platelet Count 497 H Mean Platelet Volume 9.2 Neutrophils % 85.8 H Lymphocytes % 7.3 L Monocytes % 3.4 Eosinophils % 1.8 Basophils % 0.4 Nucleated Red Blood Cells % 0.0 Neutrophils # 8.8 H Lymphocytes # 0.8 Monocytes # 0.4 Eosinophils # 0.2 Basophils # 0.0 Nucleated Red Blood Cells # 0.0 Sodium Level 144 Potassium Level 3.8 Chloride Level 104 Carbon Dioxide Level 24 Anion Gap 20 H Blood Urea Nitrogen 18 Creatinine 0.93 Glucose Level 106 Calcium Level 9.6 Phosphorus Level 3.1 Magnesium Level 2.3 Medications Current Medications Aspirin (Aspirin) 81 mg DAILY PO Last administered on 11/21/16 08:05; Admin Dose 81 MG; Start 11/17/16 at 09:00 Atorvastatin Calcium (Lipitor) 10 mg DAILY@21 PO Last administered on 11/20/16 20:44; Admin Dose 10 MG; Start 11/16/16 at 21:00 Phenytoin (Dilantin) 100 mg Q8 PO Last administered on 11/21/16 06:34; Admin Dose 100 MG; Start 11/16/16 at 22:00 Dutasteride (Avodart) 0.5 mg HS PO Last administered on 11/20/16 20:43; Admin Dose 0.5 MG; Start 11/16/16 at 21:00 Escitalopram Oxalate (Lexapro) 10 mg DAILY@13 PO Last administered on 11/20/16 12:25; Admin Dose 10 MG; Start 11/17/16 at 13:00 Oxycodone/ Acetaminophen (Percocet (5/ 325)) 1 tab Q4H PRN PO PAIN; Start 11/16 at 20:30 Magnesium Hydroxide (Milk Of Mag) 30 ml Q12H PRN PO CONSTIPATION; Start at 20:30 Lactulose (Enulose) 20 gm Q24H PRN PO CONSTIPATION; Start 11/16/16 at 20:30 Senna (Senokot) 1 tab HS PO Last administered on 11/20/16 20:43; Admin Dose 1 TAB; Start 11/16/16 at 21:00 Docusate Sodium (Colace) 100 mg BID PO Last administered on 11/21/16 08:05; Admin Dose 100 MG; Start 11/16/16 at 21:00 Acetaminophen (Tylenol Tab) 650 mg Q4H PRN PO PAIN Last administered on 20:36; Admin Dose 650 MG; Start 11/16/16 at 20:30 Bisacodyl 10 mg 10 mg Q24H PRN [place] CONSTIPATION; Start 11/16/16 at 20:30 Ceftriaxone Sodium (Rocephin) 50 ml @ 100 mls/hr Q24H IVPB Last administered on 11/20/16 20:44; Admin Dose 100 MLS/HR; Start 11/18/16 at 21:00 Valsartan 80 mg 80 mg DAILY PO ; Start 11/21/16 at 09:00; Status Future Hold Sodium Chloride (NS) 1,000 ml @ 50 mls/hr Q20H IV Last administered on 19:47; Admin Dose 50 MLS/HR; Start 11/20/16 at 10:30 Assessment/Plan Additional Assessment/Plan 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
[2016-11-21] MEDS: ESCITALOPRAM 10 MG TAB PO SCH (12:58)
--- NOTE | 2016-11-21 14:29 | CONS ---
Date/Time of Note Date/Time of Note DATE: 11/21/16 TIME: 14:28 Assessment/Plan Assessment/Plan Chief Complaint/Hosp Course No acute changes overnight, patient is alert working with physical therapy, denies pain discomfort, no fevers Antimicrobials: Rocephin Physical examination: Well-nourished well-developed fragile elderly man who is alert in no distress. Head atraumatic, normocephalic. Sclera nonicteric. Neck is supple, trachea midline. Chest rise symmetrical, breath sounds clear. Heart S1-S2. Abdomen soft, bowel tones present. Extremities without cyanosis edema. Assessment: 1. Systemic inflammatory response syndrome with fevers and leukocytosis 2. Pneumonia 3. Acute CVA 4. Status post aortic aneurysm repair 5. BPH Plan: Remains stable, complete antibiotics for 5 more days, continue acute rehabilitation Discussed with patient and staff Problems: Consultation Date/Type/Reason Admit Date/Time Nov 16, 2016 at 18:40 Initial Consult Date 11/20/16 Type of Consultation: Infectious disease Referring Provider: MINA FELIX DO Exam/Review of Systems Vital Signs Vitals Vital Signs Date Time Temp Pulse Resp B/P Pulse Ox O2 Delivery O2 Flow Rate FiO2 11/21/16 12:00 110/55 11/21/16 08:10 18 11/21/16 07:33 99.0 84 95 11/18/16 09:10 Room Air Intake and Output 11/20/16 11/20/16 11/21/16 15:00 23:00 07:00 Intake Total 1200 ml 1690 ml 720 ml Output Total 400 ml 200 ml 350 ml Balance 800 ml 1490 ml 370 ml Results Result Diagram: 11/21/16 0600 11/21/16 0600 Results 24 hrs Laboratory Tests Test 11/21/16 06:00 White Blood Count 10.3 # Red Blood Count 3.34 L Hemoglobin 9.5 L Hematocrit 30.7 L Mean Corpuscular Volume 91.9 Mean Corpuscular Hemoglobin 28.4 L Mean Corpuscular Hemoglobin Concent 30.9 L Red Cell Distribution Width 14.1 Platelet Count 497 H Mean Platelet Volume 9.2 Neutrophils % 85.8 H Lymphocytes % 7.3 L Monocytes % 3.4 Eosinophils % 1.8 Basophils % 0.4 Nucleated Red Blood Cells % 0.0 Neutrophils # 8.8 H Lymphocytes # 0.8 Monocytes # 0.4 Eosinophils # 0.2 Basophils # 0.0 Nucleated Red Blood Cells # 0.0 Sodium Level 144 Potassium Level 3.8 Chloride Level 104 Carbon Dioxide Level 24 Anion Gap 20 H Blood Urea Nitrogen 18 Creatinine 0.93 Glucose Level 106 Calcium Level 9.6 Phosphorus Level 3.1 Magnesium Level 2.3 Medications Medications Current Medications Aspirin (Aspirin) 81 mg DAILY PO Last administered on 11/21/16 08:05; Admin Dose 81 MG; Start 11/17/16 at 09:00 Atorvastatin Calcium (Lipitor) 10 mg DAILY@21 PO Last administered on 11/20/16 20:44; Admin Dose 10 MG; Start 11/16/16 at 21:00 Phenytoin (Dilantin) 100 mg Q8 PO Last administered on 11/21/16 13:02; Admin Dose 100 MG; Start 11/16/16 at 22:00 Dutasteride (Avodart) 0.5 mg HS PO Last administered on 11/20/16 20:43; Admin Dose 0.5 MG; Start 11/16/16 at 21:00 Escitalopram Oxalate (Lexapro) 10 mg DAILY@13 PO Last administered on 11/21/16 12:58; Admin Dose 10 MG; Start 11/17/16 at 13:00 Oxycodone/ Acetaminophen (Percocet (5/ 325)) 1 tab Q4H PRN PO PAIN; Start 11/16 at 20:30 Magnesium Hydroxide (Milk Of Mag) 30 ml Q12H PRN PO CONSTIPATION; Start at 20:30 Lactulose (Enulose) 20 gm Q24H PRN PO CONSTIPATION; Start 11/16/16 at 20:30 Senna (Senokot) 1 tab HS PO Last administered on 11/20/16 20:43; Admin Dose 1 TAB; Start 11/16/16 at 21:00 Docusate Sodium (Colace) 100 mg BID PO Last administered on 11/21/16 08:05; Admin Dose 100 MG; Start 11/16/16 at 21:00 Acetaminophen (Tylenol Tab) 650 mg Q4H PRN PO PAIN Last administered on 20:36; Admin Dose 650 MG; Start 11/16/16 at 20:30 Bisacodyl 10 mg 10 mg Q24H PRN [place] CONSTIPATION; Start 11/16/16 at 20:30 Ceftriaxone Sodium (Rocephin) 50 ml @ 100 mls/hr Q24H IVPB Last administered on 11/20/16 20:44; Admin Dose 100 MLS/HR; Start 11/18/16 at 21:00 Valsartan 80 mg 80 mg DAILY PO ; Start 11/21/16 at 09:00; Status Future Hold Sodium Chloride (NS) 1,000 ml @ 50 mls/hr Q20H IV Last administered on 19:47; Admin Dose 50 MLS/HR; Start 11/20/16 at 10:30 MILO REYES NP Nov 21, 2016 14:29
[2016-11-21 20:09] VITALS: BP 116/59; RESP 18
[2016-11-21] MEDS: SENNA TAB PO SCH (21:00)
[2016-11-21] MEDS: DUTASTERIDE 0.5 MG CAP PO SCH (21:03)
[2016-11-21] MEDS: CEFTRIAXONE 1 GM/50 ML (PMX) 50 ML IVPB SCH (21:03)
[2016-11-21] MEDS: ATORVASTATIN 10 MG TAB PO SCH (21:04)
[2016-11-22] MEDS: SOD CHLORIDE 0.9% 1,000 ML IV SCH (02:30)
[2016-11-22] MEDS: PHENYTOIN 100 MG CAP PO SCH ×3 (05:50→21:05)
[2016-11-22 07:30] VITALS: BP 127/70; RESP 18
--- NOTE | 2016-11-22 08:19 | CONS ---
Date/Time of Note Date/Time of Note DATE: 11/22/16 TIME: 08:16 Consult Date/Type/Reason Admit Date/Time Nov 16, 2016 at 18:40 Type of Consultation: rehabilitation Ordering Provider: MINA FELIX DO Subjective Reports feeling stronger today Objective Lungs clear anteriorly Min assist ambulation 75 feet Vital Signs Date Time Temp Pulse Resp B/P Pulse Ox O2 Delivery O2 Flow Rate FiO2 11/21/16 20:09 98.7 85 18 116/59 97 11/18/16 09:10 Room Air Intake and Output 11/21/16 11/21/16 11/22/16 15:00 23:00 07:00 Intake Total 1100 ml 1050 ml 1350 ml Output Total 400 ml 200 ml 450 ml Balance 700 ml 850 ml 900 ml Results/Medications Result Diagram: 11/21/16 0600 11/21/16 0600 Medications Current Medications Aspirin (Aspirin) 81 mg DAILY PO Last administered on 11/21/16 08:05; Admin Dose 81 MG; Start 11/17/16 at 09:00 Atorvastatin Calcium (Lipitor) 10 mg DAILY@21 PO Last administered on 11/21/16 21:04; Admin Dose 10 MG; Start 11/16/16 at 21:00 Phenytoin (Dilantin) 100 mg Q8 PO Last administered on 11/22/16 05:50; Admin Dose 100 MG; Start 11/16/16 at 22:00 Dutasteride (Avodart) 0.5 mg HS PO Last administered on 11/21/16 21:03; Admin Dose 0.5 MG; Start 11/16/16 at 21:00 Escitalopram Oxalate (Lexapro) 10 mg DAILY@13 PO Last administered on 11/21/16 12:58; Admin Dose 10 MG; Start 11/17/16 at 13:00 Oxycodone/ Acetaminophen (Percocet (5/ 325)) 1 tab Q4H PRN PO PAIN; Start 11/16 at 20:30 Magnesium Hydroxide (Milk Of Mag) 30 ml Q12H PRN PO CONSTIPATION; Start at 20:30 Lactulose (Enulose) 20 gm Q24H PRN PO CONSTIPATION; Start 11/16/16 at 20:30 Senna (Senokot) 1 tab HS PO Last administered on 11/20/16 20:43; Admin Dose 1 TAB; Start 11/16/16 at 21:00 Docusate Sodium (Colace) 100 mg BID PO Last administered on 11/21/16 21:04; Admin Dose 100 MG; Start 11/16/16 at 21:00 Acetaminophen (Tylenol Tab) 650 mg Q4H PRN PO PAIN Last administered on 20:36; Admin Dose 650 MG; Start 11/16/16 at 20:30 Bisacodyl 10 mg 10 mg Q24H PRN [place] CONSTIPATION; Start 11/16/16 at 20:30 Ceftriaxone Sodium (Rocephin) 50 ml @ 100 mls/hr Q24H IVPB Last administered on 11/21/16 21:03; Admin Dose 100 MLS/HR; Start 11/18/16 at 21:00 Valsartan 80 mg 80 mg DAILY PO ; Start 11/21/16 at 09:00; Status Future Hold Sodium Chloride (NS) 1,000 ml @ 50 mls/hr Q20H IV Last administered on 21:02; Admin Dose 50 MLS/HR; Start 11/20/16 at 10:30 Assessment/Plan Additional Assessment/Plan 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 Orthostatic hypotension-abdominal binder for out of bed. Improved orthostatic hypotension status post abdominal aortic aneurysm repair Status post intubation BPH History of cervical fusion History of bilateral hip surgery Hypertension Seizure disorder Functional Impact of comorbidity: Orthostatic hypotension has impaired out of bed activity, however now with improving blood pressure patient is able to tolerate increased activity HERNANDEZ PASTRANA MD Nov 22, 2016 08:19
[2016-11-22] MEDS: DOCUSATE SODIUM 100 MG CAP PO SCH ×2 (08:56→21:05)
[2016-11-22] MEDS: ASPIRIN 81 MG TAB PO SCH (08:56)
[2016-11-22] MEDS: ESCITALOPRAM 10 MG TAB PO SCH (12:24)
--- NOTE | 2016-11-22 19:09 | CONS ---
Date/Time of Note Date/Time of Note DATE: 11/22/16 TIME: 19:08 Assessment/Plan Assessment/Plan Chief Complaint/Hosp Course No acute changes overnight, patient is alert, denies pain discomfort, no fevers Antimicrobials: Rocephin Physical examination: Well-nourished well-developed fragile elderly man who is alert in no distress. Head atraumatic, normocephalic. Sclera nonicteric. Neck is supple, trachea midline. Chest rise symmetrical, breath sounds clear. Heart S1-S2. Abdomen soft, bowel tones present. Extremities without cyanosis edema. Assessment: 1. Systemic inflammatory response syndrome==> s/p fevers and leukocytosis 2. Pneumonia 3. Acute CVA 4. Status post aortic aneurysm repair 5. BPH Plan: Remains stable, complete antibiotics for 4 more days, continue acute rehabilitation Discussed with patient and staff Problems: Consultation Date/Type/Reason Admit Date/Time Nov 16, 2016 at 18:40 Initial Consult Date 11/20/16 Type of Consultation: ID Referring Provider: MINA FELIX DO Exam/Review of Systems Vital Signs Vitals Vital Signs Date Time Temp Pulse Resp B/P Pulse Ox O2 Delivery O2 Flow Rate FiO2 11/22/16 07:30 99.2 78 18 127/70 95 11/18/16 09:10 Room Air Intake and Output 11/21/16 11/21/16 11/22/16 15:00 23:00 07:00 Intake Total 1100 ml 1050 ml 1350 ml Output Total 400 ml 200 ml 450 ml Balance 700 ml 850 ml 900 ml Results Result Diagram: 11/21/16 0600 11/21/16 0600 Medications Medications Current Medications Aspirin (Aspirin) 81 mg DAILY PO Last administered on 11/22/16 08:56; Admin Dose 81 MG; Start 11/17/16 at 09:00 Atorvastatin Calcium (Lipitor) 10 mg DAILY@21 PO Last administered on 11/21/16 21:04; Admin Dose 10 MG; Start 11/16/16 at 21:00 Phenytoin (Dilantin) 100 mg Q8 PO Last administered on 11/22/16 13:15; Admin Dose 100 MG; Start 11/16/16 at 22:00 Dutasteride (Avodart) 0.5 mg HS PO Last administered on 11/21/16 21:03; Admin Dose 0.5 MG; Start 11/16/16 at 21:00 Escitalopram Oxalate (Lexapro) 10 mg DAILY@13 PO Last administered on 11/22/16 12:24; Admin Dose 10 MG; Start 11/17/16 at 13:00 Oxycodone/ Acetaminophen (Percocet (5/ 325)) 1 tab Q4H PRN PO PAIN; Start 11/16 at 20:30 Magnesium Hydroxide (Milk Of Mag) 30 ml Q12H PRN PO CONSTIPATION; Start at 20:30 Lactulose (Enulose) 20 gm Q24H PRN PO CONSTIPATION; Start 11/16/16 at 20:30 Senna (Senokot) 1 tab HS PO Last administered on 11/20/16 20:43; Admin Dose 1 TAB; Start 11/16/16 at 21:00 Docusate Sodium (Colace) 100 mg BID PO Last administered on 11/22/16 08:56; Admin Dose 100 MG; Start 11/16/16 at 21:00 Acetaminophen (Tylenol Tab) 650 mg Q4H PRN PO PAIN Last administered on 20:36; Admin Dose 650 MG; Start 11/16/16 at 20:30 Bisacodyl 10 mg 10 mg Q24H PRN [place] CONSTIPATION; Start 11/16/16 at 20:30 Ceftriaxone Sodium (Rocephin) 50 ml @ 100 mls/hr Q24H IVPB Last administered on 11/21/16 21:03; Admin Dose 100 MLS/HR; Start 11/18/16 at 21:00 Valsartan (Diovan) 80 mg DAILY PO ; Start 11/21/16 at 09:00; Status Future Hold MILO REYES NP Nov 22, 2016 19:09
[2016-11-22 19:56] VITALS: BP 127/64; RESP 18
[2016-11-22] MEDS: SENNA TAB PO SCH (21:05)
[2016-11-22] MEDS: CEFTRIAXONE 1 GM/50 ML (PMX) 50 ML IVPB SCH (21:05)
[2016-11-22] MEDS: ATORVASTATIN 10 MG TAB PO SCH (21:05)
[2016-11-22] MEDS: DUTASTERIDE 0.5 MG CAP PO SCH (21:06)
[2016-11-23] MEDS: PHENYTOIN 100 MG CAP PO SCH ×3 (06:26→20:39)
[2016-11-23 07:38] VITALS: BP 122/71; RESP 18
[2016-11-23] MEDS: LACTULOSE 30ML CUP PO PRN (08:47)
[2016-11-23] MEDS: DOCUSATE SODIUM 100 MG CAP PO SCH ×2 (08:47→20:35)
[2016-11-23] MEDS: ASPIRIN 81 MG TAB PO SCH (08:47)
--- NOTE | 2016-11-23 10:36 | PN ---
Date/Time of Note Date/Time of Note DATE: 11/23/16 TIME: 10:31 Assessment/Plan Lines/Catheters IV Catheter Type (from [facility]): [facility] Urinary Cath still in place: No Assessment/Plan Chief Complaint/Hosp Course 1. Fever, Sirs, ? sepsis -Source unclear ? Viral ? pna -Patient on antibiotics. - Blood cultures, urine cultures negative today. - Chest x-ray shows possible infiltrate versus atelectasis -Appreciate IDs recommendation -Patient clinically improving. 2. 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 Improving Plan is to continue current treatment plan continue medical management continue low-dose aspirin continue PT OT per acute rehab 2. Hypotension, orthostatic -Resolved with IV fluids -Monitor 3. Dyslipidemia continue statin therapy 4. Aortic aneurysm status post surgical repair 5. BPH continue medical management 6. Seizure. Continue Dilantin 7. Depression continue Lexapro 8 GI DVT prophylaxis. Continue PPI and SCDs 10. Anemia monitor H&H levels Problems: Subjective 24 Hr Interval Summary Free Text/Dictation Patient seen and examined. No acute events overnight. No fevers Exam/Review of Systems Vital Signs Vitals Vital Signs Date Time Temp Pulse Resp B/P Pulse Ox O2 Delivery O2 Flow Rate FiO2 11/23/16 07:38 98.5 77 18 122/71 97 Intake and Output 11/22/16 11/22/16 11/23/16 14:59 22:59 06:59 Intake Total 200 ml 1390 ml 200 ml Output Total 500 ml 550 ml Balance 200 ml 890 ml -350 ml Exam HEENT head is normocephalic pupils are reactive to light Cardiovascular heart is regular rate Lungs show diminished breath sounds at bases otherwise clear Abdomen soft nontender palpation rebound Extremities are negative for clubbing cyanosis no edema Dermatologically no rashes Musculoskeletal no joint effusion Neurologically patient has weakness right upper extremity left lower extremity. Results Result Diagram: 11/21/16 0600 11/21/16 0600 Medications Medications Current Medications Aspirin (Aspirin) 81 mg DAILY PO Last administered on 11/23/16 08:47; Admin Dose 81 MG; Start 11/17/16 at 09:00 Atorvastatin Calcium (Lipitor) 10 mg DAILY@21 PO Last administered on 11/22/16 21:05; Admin Dose 10 MG; Start 11/16/16 at 21:00 Phenytoin (Dilantin) 100 mg Q8 PO Last administered on 11/23/16 06:26; Admin Dose 100 MG; Start 11/16/16 at 22:00 Dutasteride (Avodart) 0.5 mg HS PO Last administered on 11/22/16 21:06; Admin Dose 0.5 MG; Start 11/16/16 at 21:00 Escitalopram Oxalate (Lexapro) 10 mg DAILY@13 PO Last administered on 11/22/16 12:24; Admin Dose 10 MG; Start 11/17/16 at 13:00 Oxycodone/ Acetaminophen (Percocet (5/ 325)) 1 tab Q4H PRN PO PAIN; Start 11/16 at 20:30 Magnesium Hydroxide (Milk Of Mag) 30 ml Q12H PRN PO CONSTIPATION; Start at 20:30 Lactulose (Enulose) 20 gm Q24H PRN PO CONSTIPATION Last administered on 08:47; Admin Dose 20 GM; Start 11/16/16 at 20:30 Senna (Senokot) 1 tab HS PO Last administered on 11/22/16 21:05; Admin Dose 1 TAB; Start 11/16/16 at 21:00 Docusate Sodium (Colace) 100 mg BID PO Last administered on 11/23/16 08:47; Admin Dose 100 MG; Start 11/16/16 at 21:00 Acetaminophen (Tylenol Tab) 650 mg Q4H PRN PO PAIN Last administered on 20:36; Admin Dose 650 MG; Start 11/16/16 at 20:30 Bisacodyl 10 mg 10 mg Q24H PRN [place] CONSTIPATION; Start 11/16/16 at 20:30 Ceftriaxone Sodium (Rocephin) 50 ml @ 100 mls/hr Q24H IVPB Last administered on 11/22/16 21:05; Admin Dose 100 MLS/HR; Start 11/18/16 at 21:00 Valsartan (Diovan) 80 mg DAILY PO ; Start 11/21/16 at 09:00; Status Future Hold WILFREDO HALLMAN DO Nov 23, 2016 10:36
--- NOTE | 2016-11-23 11:01 | CONS ---
Date/Time of Note Date/Time of Note DATE: 11/23/16 TIME: 11:00 Consult Date/Type/Reason Admit Date/Time Nov 16, 2016 at 18:40 Type of Consultation: ID Ordering Provider: MINA FELIX DO Subjective Feeling much better today Objective Contact-guard assist ambulation 100 feet Vital Signs Date Time Temp Pulse Resp B/P Pulse Ox O2 Delivery O2 Flow Rate FiO2 11/23/16 07:38 98.5 77 18 122/71 97 Intake and Output 11/22/16 11/22/16 11/23/16 15:00 23:00 07:00 Intake Total 200 ml 1390 ml 200 ml Output Total 500 ml 550 ml Balance 200 ml 890 ml -350 ml Results/Medications Result Diagram: 11/21/16 0611/21/16 0600 Medications Current Medications Aspirin (Aspirin) 81 mg DAILY PO Last administered on 11/23/16 08:47; Admin Dose 81 MG; Start 11/17/16 at 09:00 Atorvastatin Calcium (Lipitor) 10 mg DAILY@21 PO Last administered on 11/22/16 21:05; Admin Dose 10 MG; Start 11/16/16 at 21:00 Phenytoin (Dilantin) 100 mg Q8 PO Last administered on 11/23/16 06:26; Admin Dose 100 MG; Start 11/16/16 at 22:00 Dutasteride (Avodart) 0.5 mg HS PO Last administered on 11/22/16 21:06; Admin Dose 0.5 MG; Start 11/16/16 at 21:00 Escitalopram Oxalate (Lexapro) 10 mg DAILY@13 PO Last administered on 11/22/16 12:24; Admin Dose 10 MG; Start 11/17/16 at 13:00 Oxycodone/ Acetaminophen (Percocet (5/ 325)) 1 tab Q4H PRN PO PAIN; Start 11/16 at 20:30 Magnesium Hydroxide (Milk Of Mag) 30 ml Q12H PRN PO CONSTIPATION; Start at 20:30 Lactulose (Enulose) 20 gm Q24H PRN PO CONSTIPATION Last administered on 08:47; Admin Dose 20 GM; Start 11/16/16 at 20:30 Senna (Senokot) 1 tab HS PO Last administered on 11/22/16 21:05; Admin Dose 1 TAB; Start 11/16/16 at 21:00 Docusate Sodium (Colace) 100 mg BID PO Last administered on 11/23/16 08:47; Admin Dose 100 MG; Start 11/16/16 at 21:00 Acetaminophen (Tylenol Tab) 650 mg Q4H PRN PO PAIN Last administered on 20:36; Admin Dose 650 MG; Start 11/16/16 at 20:30 Bisacodyl 10 mg 10 mg Q24H PRN [place] CONSTIPATION; Start 11/16/16 at 20:30 Ceftriaxone Sodium (Rocephin) 50 ml @ 100 mls/hr Q24H IVPB Last administered on 11/22/16 21:05; Admin Dose 100 MLS/HR; Start 11/18/16 at 21:00 Valsartan (Diovan) 80 mg DAILY PO ; Start 11/21/16 at 09:00; Status Future Hold Assessment/Plan Additional Assessment/Plan Rehabilitation - 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
[2016-11-23] MEDS: ESCITALOPRAM 10 MG TAB PO SCH (16:14)
--- NOTE | 2016-11-23 16:47 | CONS ---
Date/Time of Note Date/Time of Note DATE: 11/23/16 TIME: 16:47 Assessment/Plan Assessment/Plan Chief Complaint/Hosp Course No acute changes overnight, patient is alert, denies pain discomfort, no fevers Antimicrobials: Rocephin Physical examination: Well-nourished well-developed fragile elderly man who is alert in no distress. Head atraumatic, normocephalic. Sclera nonicteric. Neck is supple, trachea midline. Chest rise symmetrical, breath sounds clear. Heart S1-S2. Abdomen soft, bowel tones present. Extremities without cyanosis edema. Assessment: 1. Systemic inflammatory response syndrome==> s/p fevers and leukocytosis 2. Pneumonia 3. Acute CVA 4. Status post aortic aneurysm repair 5. BPH Plan: Remains stable, completing antibiotics==> 3 more days Problems: Consultation Date/Type/Reason Admit Date/Time Nov 16, 2016 at 18:40 Initial Consult Date 11/20/16 Type of Consultation: ID Referring Provider: MINA FELIX DO Exam/Review of Systems Vital Signs Vitals Vital Signs Date Time Temp Pulse Resp B/P Pulse Ox O2 Delivery O2 Flow Rate FiO2 11/23/16 07:38 98.5 77 18 122/71 97 Intake and Output 11/22/16 11/22/16 11/23/16 15:00 23:00 07:00 Intake Total 200 ml 1390 ml 200 ml Output Total 500 ml 550 ml Balance 200 ml 890 ml -350 ml Results Result Diagram: 11/21/16 0600 11/21/16 0600 Medications Medications Current Medications Aspirin (Aspirin) 81 mg DAILY PO Last administered on 11/23/16 08:47; Admin Dose 81 MG; Start 11/17/16 at 09:00 Atorvastatin Calcium (Lipitor) 10 mg DAILY@21 PO Last administered on 11/22/16 21:05; Admin Dose 10 MG; Start 11/16/16 at 21:00 Phenytoin (Dilantin) 100 mg Q8 PO Last administered on 11/23/16 16:14; Admin Dose 100 MG; Start 11/16/16 at 22:00 Dutasteride (Avodart) 0.5 mg HS PO Last administered on 11/22/16 21:06; Admin Dose 0.5 MG; Start 11/16/16 at 21:00 Escitalopram Oxalate (Lexapro) 10 mg DAILY@13 PO Last administered on 11/23/16 16:14; Admin Dose 10 MG; Start 11/17/16 at 13:00 Oxycodone/ Acetaminophen (Percocet (5/ 325)) 1 tab Q4H PRN PO PAIN; Start 11/16 at 20:30 Magnesium Hydroxide (Milk Of Mag) 30 ml Q12H PRN PO CONSTIPATION; Start at 20:30 Lactulose (Enulose) 20 gm Q24H PRN PO CONSTIPATION Last administered on 08:47; Admin Dose 20 GM; Start 11/16/16 at 20:30 Senna (Senokot) 1 tab HS PO Last administered on 11/22/16 21:05; Admin Dose 1 TAB; Start 11/16/16 at 21:00 Docusate Sodium (Colace) 100 mg BID PO Last administered on 11/23/16 08:47; Admin Dose 100 MG; Start 11/16/16 at 21:00 Acetaminophen (Tylenol Tab) 650 mg Q4H PRN PO PAIN Last administered on 20:36; Admin Dose 650 MG; Start 11/16/16 at 20:30 Bisacodyl 10 mg 10 mg Q24H PRN [place] CONSTIPATION; Start 11/16/16 at 20:30 Ceftriaxone Sodium (Rocephin) 50 ml @ 100 mls/hr Q24H IVPB Last administered on 11/22/16 21:05; Admin Dose 100 MLS/HR; Start 11/18/16 at 21:00 Valsartan (Diovan) 80 mg DAILY PO ; Start 11/21/16 at 09:00; Status Future Hold MILO REYES NP Nov 23, 2016 16:47
[2016-11-23 20:00] VITALS: BP 151/81; RESP 18
[2016-11-23] MEDS: CEFTRIAXONE 1 GM/50 ML (PMX) 50 ML IVPB SCH (20:34)
[2016-11-23] MEDS: ATORVASTATIN 10 MG TAB PO SCH (20:35)
[2016-11-23] MEDS: DUTASTERIDE 0.5 MG CAP PO SCH (20:35)
[2016-11-23] MEDS: SENNA TAB PO SCH (20:35)
[2016-11-24 01:40] VITALS: BP 132/70; PULSE 79
[2016-11-24] MEDS: PHENYTOIN 100 MG CAP PO SCH ×3 (06:13→20:38)
[2016-11-24 07:30] VITALS: BP 136/70; RESP 18
[2016-11-24] MEDS: DOCUSATE SODIUM 100 MG CAP PO SCH ×2 (08:26→20:36)
[2016-11-24] MEDS: ASPIRIN 81 MG TAB PO SCH (08:26)
--- NOTE | 2016-11-24 09:28 | CONS ---
Date/Time of Note Date/Time of Note DATE: 11/24/16 TIME: 09:25 Consult Date/Type/Reason Admit Date/Time Nov 16, 2016 at 18:40 Initial Consult Date 11/20/16 Type of Consultation: med Ordering Provider: MINA FELIX DO Subjective Patient seen and examined. No acute events overnight. No fevers Exam HEENT head is normocephalic pupils are reactive to light Cardiovascular heart is regular rate Lungs show diminished breath sounds at bases otherwise clear Abdomen soft nontender palpation rebound Extremities are negative for clubbing cyanosis no edema Dermatologically no rashes Musculoskeletal no joint effusion Neurologically patient has weakness right upper extremity left lower extremity. Objective Vital Signs Date Time Temp Pulse Resp B/P Pulse Ox O2 Delivery O2 Flow Rate FiO2 11/24/16 01:40 99.0 79 132/70 11/23/16 20:00 18 97 Intake and Output 11/23/16 11/23/16 11/24/16 15:00 23:00 07:00 Intake Total 1200 ml 650 ml 800 ml Output Total 400 ml 400 ml Balance 800 ml 250 ml 800 ml Results/Medications Result Diagram: 11/21/16 0600 11/21/16 0600 Medications Current Medications Aspirin (Aspirin) 81 mg DAILY PO Last administered on 11/24/16 08:26; Admin Dose 81 MG; Start 11/17/16 at 09:00 Atorvastatin Calcium (Lipitor) 10 mg DAILY@21 PO Last administered on 11/23/16 20:35; Admin Dose 10 MG; Start 11/16/16 at 21:00 Phenytoin (Dilantin) 100 mg Q8 PO Last administered on 11/24/16 06:13; Admin Dose 100 MG; Start 11/16/16 at 22:00 Dutasteride (Avodart) 0.5 mg HS PO Last administered on 11/23/16 20:35; Admin Dose 0.5 MG; Start 11/16/16 at 21:00 Escitalopram Oxalate (Lexapro) 10 mg DAILY@13 PO Last administered on 11/23/16 16:14; Admin Dose 10 MG; Start 11/17/16 at 13:00 Oxycodone/ Acetaminophen (Percocet (5/ 325)) 1 tab Q4H PRN PO PAIN; Start 11/16 at 20:30 Magnesium Hydroxide (Milk Of Mag) 30 ml Q12H PRN PO CONSTIPATION; Start at 20:30 Lactulose (Enulose) 20 gm Q24H PRN PO CONSTIPATION Last administered on 08:47; Admin Dose 20 GM; Start 11/16/16 at 20:30 Senna (Senokot) 1 tab HS PO Last administered on 11/23/16 20:35; Admin Dose 1 TAB; Start 11/16/16 at 21:00 Docusate Sodium (Colace) 100 mg BID PO Last administered on 11/24/16 08:26; Admin Dose 100 MG; Start 11/16/16 at 21:00 Acetaminophen (Tylenol Tab) 650 mg Q4H PRN PO PAIN Last administered on 20:36; Admin Dose 650 MG; Start 11/16/16 at 20:30 Bisacodyl 10 mg 10 mg Q24H PRN [place] CONSTIPATION; Start 11/16/16 at 20:30 Ceftriaxone Sodium (Rocephin) 50 ml @ 100 mls/hr Q24H IVPB Last administered on 11/23/16 20:34; Admin Dose 100 MLS/HR; Start 11/18/16 at 21:00 Valsartan (Diovan) 80 mg DAILY PO ; Start 11/21/16 at 09:00; Status Future Hold Assessment/Plan Chief Complaint/Hosp Course 1. Fever, Sirs, ? sepsis -Source unclear ? Viral ? pna -Patient on antibiotics to complete course for 2 more days - Blood cultures, urine cultures negative today. - Chest x-ray shows possible infiltrate versus atelectasis -Appreciate IDs recommendation -Patient clinically improving. 2. 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 Improving Plan is to continue current treatment plan continue medical management continue low-dose aspirin continue PT OT per acute rehab 2. Hypotension, orthostatic -Resolved with IV fluids -Monitor 3. Dyslipidemia continue statin therapy 4. Aortic aneurysm status post surgical repair 5. BPH continue medical management 6. Seizure. Continue Dilantin 7. Depression continue Lexapro 8 GI DVT prophylaxis. Continue PPI and SCDs 9. Anemia monitor H&H levels Problems: SHANE NICOLAS MD Nov 24, 2016 09:27
--- NOTE | 2016-11-24 12:12 | CONS ---
Date/Time of Note Date/Time of Note DATE: 11/24/16 TIME: 12:11 Consult Date/Type/Reason Admit Date/Time Nov 16, 2016 at 18:40 Type of Consultation: med Ordering Provider: MINA FELIX DO Subjective Comfortable Objective Lungs clear anteriorly Min assist ambulation Vital Signs Date Time Temp Pulse Resp B/P Pulse Ox O2 Delivery O2 Flow Rate FiO2 11/24/16 01:40 99.0 79 132/70 11/23/16 20:00 18 97 Intake and Output 11/23/16 11/23/16 11/24/16 15:00 23:00 07:00 Intake Total 1200 ml 650 ml 800 ml Output Total 400 ml 400 ml Balance 800 ml 250 ml 800 ml Results/Medications Result Diagram: 11/21/16 0611/21/16 0600 Medications Current Medications Aspirin (Aspirin) 81 mg DAILY PO Last administered on 11/24/16 08:26; Admin Dose 81 MG; Start 11/17/16 at 09:00 Atorvastatin Calcium (Lipitor) 10 mg DAILY@21 PO Last administered on 11/23/16 20:35; Admin Dose 10 MG; Start 11/16/16 at 21:00 Phenytoin (Dilantin) 100 mg Q8 PO Last administered on 11/24/16 06:13; Admin Dose 100 MG; Start 11/16/16 at 22:00 Dutasteride (Avodart) 0.5 mg HS PO Last administered on 11/23/16 20:35; Admin Dose 0.5 MG; Start 11/16/16 at 21:00 Escitalopram Oxalate (Lexapro) 10 mg DAILY@13 PO Last administered on 11/23/16 16:14; Admin Dose 10 MG; Start 11/17/16 at 13:00 Oxycodone/ Acetaminophen (Percocet (5/ 325)) 1 tab Q4H PRN PO PAIN; Start 11/16 at 20:30 Magnesium Hydroxide (Milk Of Mag) 30 ml Q12H PRN PO CONSTIPATION; Start at 20:30 Lactulose (Enulose) 20 gm Q24H PRN PO CONSTIPATION Last administered on 08:47; Admin Dose 20 GM; Start 11/16/16 at 20:30 Senna (Senokot) 1 tab HS PO Last administered on 11/23/16 20:35; Admin Dose 1 TAB; Start 11/16/16 at 21:00 Docusate Sodium (Colace) 100 mg BID PO Last administered on 11/24/16 08:26; Admin Dose 100 MG; Start 11/16/16 at 21:00 Acetaminophen (Tylenol Tab) 650 mg Q4H PRN PO PAIN Last administered on 20:36; Admin Dose 650 MG; Start 11/16/16 at 20:30 Bisacodyl 10 mg 10 mg Q24H PRN [place] CONSTIPATION; Start 11/16/16 at 20:30 Ceftriaxone Sodium (Rocephin) 50 ml @ 100 mls/hr Q24H IVPB Last administered on 11/23/16 20:34; Admin Dose 100 MLS/HR; Start 11/18/16 at 21:00 Valsartan (Diovan) 80 mg DAILY PO ; Start 11/21/16 at 09:00; Status Future Hold Assessment/Plan Additional Assessment/Plan Rehabilitation - bilateral cortical infarct CVA with bilateral weakness right worse than left Patient motivated and progressing well with current rehabilitative treatment plan Orthostatic hypotension-resolved status post abdominal aortic aneurysm repair Status post intubation BPH History of cervical fusion History of bilateral hip surgery Hypertension Seizure disorder HERNANDEZ PASTRANA MD Nov 24, 2016 12:11
[2016-11-24] MEDS: ESCITALOPRAM 10 MG TAB PO SCH (13:41)
--- NOTE | 2016-11-24 16:41 | CONS ---
Date/Time of Note Date/Time of Note DATE: 11/24/16 TIME: 16:40 Assessment/Plan Assessment/Plan Chief Complaint/Hosp Course No acute changes overnight, patient is sleeping, no fevers Antimicrobials: Rocephin Physical examination: Well-nourished well-developed fragile elderly man who is in no distress. Head atraumatic, normocephalic. Sclera nonicteric. Neck is supple, trachea midline. Chest rise symmetrical, breath sounds clear. Heart S1-S2. Abdomen soft, bowel tones present. Extremities without cyanosis edema. Assessment: 1. Systemic inflammatory response syndrome==> s/p fevers and leukocytosis 2. Pneumonia 3. Acute CVA 4. Status post aortic aneurysm repair 5. BPH Plan: Remains stable, completing antibiotics==> 2 more days Problems: Consultation Date/Type/Reason Admit Date/Time Nov 16, 2016 at 18:40 Initial Consult Date 11/20/16 Type of Consultation: Infectious disease Referring Provider: MINA FELIX DO Exam/Review of Systems Vital Signs Vitals Vital Signs Date Time Temp Pulse Resp B/P Pulse Ox O2 Delivery O2 Flow Rate FiO2 11/24/16 07:30 98.1 85 18 136/70 96 Intake and Output 11/23/16 11/23/16 11/24/16 15:00 23:00 07:00 Intake Total 1200 ml 650 ml 800 ml Output Total 400 ml 400 ml Balance 800 ml 250 ml 800 ml Results Result Diagram: 11/21/16 0600 11/21/16 0600 Medications Medications Current Medications Aspirin (Aspirin) 81 mg DAILY PO Last administered on 11/24/16 08:26; Admin Dose 81 MG; Start 11/17/16 at 09:00 Atorvastatin Calcium (Lipitor) 10 mg DAILY@21 PO Last administered on 11/23/16 20:35; Admin Dose 10 MG; Start 11/16/16 at 21:00 Phenytoin (Dilantin) 100 mg Q8 PO Last administered on 11/24/16 13:41; Admin Dose 100 MG; Start 11/16/16 at 22:00 Dutasteride (Avodart) 0.5 mg HS PO Last administered on 11/23/16 20:35; Admin Dose 0.5 MG; Start 11/16/16 at 21:00 Escitalopram Oxalate (Lexapro) 10 mg DAILY@13 PO Last administered on 11/24/16 13:41; Admin Dose 10 MG; Start 11/17/16 at 13:00 Oxycodone/ Acetaminophen (Percocet (5/ 325)) 1 tab Q4H PRN PO PAIN; Start 11/16 at 20:30 Magnesium Hydroxide (Milk Of Mag) 30 ml Q12H PRN PO CONSTIPATION; Start at 20:30 Lactulose (Enulose) 20 gm Q24H PRN PO CONSTIPATION Last administered on 08:47; Admin Dose 20 GM; Start 11/16/16 at 20:30 Senna (Senokot) 1 tab HS PO Last administered on 11/23/16 20:35; Admin Dose 1 TAB; Start 11/16/16 at 21:00 Docusate Sodium (Colace) 100 mg BID PO Last administered on 11/24/16 08:26; Admin Dose 100 MG; Start 11/16/16 at 21:00 Acetaminophen (Tylenol Tab) 650 mg Q4H PRN PO PAIN Last administered on 20:36; Admin Dose 650 MG; Start 11/16/16 at 20:30 Bisacodyl 10 mg 10 mg Q24H PRN [place] CONSTIPATION; Start 11/16/16 at 20:30 Ceftriaxone Sodium (Rocephin) 50 ml @ 100 mls/hr Q24H IVPB Last administered on 11/23/16 20:34; Admin Dose 100 MLS/HR; Start 11/18/16 at 21:00 Valsartan (Diovan) 80 mg DAILY PO ; Start 11/21/16 at 09:00; Status Future Hold MILO REYES CASEWORK SPECIALIST Nov 24, 2016 16:40
[2016-11-24 19:54] VITALS: BP 118/68; PULSE 92; RESP 18
[2016-11-24] MEDS: DUTASTERIDE 0.5 MG CAP PO SCH (20:36)
[2016-11-24] MEDS: SENNA TAB PO SCH (20:36)
[2016-11-24] MEDS: ATORVASTATIN 10 MG TAB PO SCH (20:36)
[2016-11-24] MEDS: CEFTRIAXONE 1 GM/50 ML (PMX) 50 ML IVPB SCH (20:38)
[2016-11-25] MEDS: PHENYTOIN 100 MG CAP PO SCH ×3 (06:17→21:03)
[2016-11-25 08:50] VITALS: BP 134/62; RESP 18
[2016-11-25] MEDS: ASPIRIN 81 MG TAB PO SCH (09:01)
[2016-11-25] MEDS: DOCUSATE SODIUM 100 MG CAP PO SCH ×2 (09:01→20:54)
--- NOTE | 2016-11-25 09:57 | CONS ---
Date/Time of Note Date/Time of Note DATE: 11/25/16 TIME: 09:55 Consult Date/Type/Reason Admit Date/Time Nov 16, 2016 at 18:40 Initial Consult Date 11/20/16 Type of Consultation: Infectious disease Ordering Provider: MINA FELIX Patient seen and examined. No acute events overnight. No fevers had constipation that responded to prune juice poc reviewed with dr. damian. Exam HEENT head is normocephalic pupils are reactive to light Cardiovascular heart is regular rate Lungs show diminished breath sounds at bases otherwise clear Abdomen soft nontender palpation rebound Extremities are negative for clubbing cyanosis no edema Dermatologically no rashes Musculoskeletal no joint effusion Neurologically patient has weakness right upper extremity left lower extremity. Objective Vital Signs Date Time Temp Pulse Resp B/P Pulse Ox O2 Delivery O2 Flow Rate FiO2 11/25/16 08:50 98.9 87 18 134/62 95 11/24/16 19:54 Room Air Intake and Output 11/24/16 11/24/16 11/25/16 15:00 23:00 07:00 Intake Total 1480 ml 1000 ml Output Total 1 ml 100 ml Balance 1479 ml 900 ml Results/Medications Result Diagram: 11/21/16 0600 11/21/16 0600 Medications Current Medications Aspirin (Aspirin) 81 mg DAILY PO Last administered on 11/25/16 09:01; Admin Dose 81 MG; Start 11/17/16 at 09:00 Atorvastatin Calcium (Lipitor) 10 mg DAILY@21 PO Last administered on 11/24/16 20:36; Admin Dose 10 MG; Start 11/16/16 at 21:00 Phenytoin (Dilantin) 100 mg Q8 PO Last administered on 11/25/16 06:17; Admin Dose 100 MG; Start 11/16/16 at 22:00 Dutasteride (Avodart) 0.5 mg HS PO Last administered on 11/24/16 20:36; Admin Dose 0.5 MG; Start 11/16/16 at 21:00 Escitalopram Oxalate (Lexapro) 10 mg DAILY@13 PO Last administered on 11/24/16 13:41; Admin Dose 10 MG; Start 11/17/16 at 13:00 Oxycodone/ Acetaminophen (Percocet (5/ 325)) 1 tab Q4H PRN PO PAIN; Start 11/16 at 20:30 Magnesium Hydroxide (Milk Of Mag) 30 ml Q12H PRN PO CONSTIPATION; Start at 20:30 Lactulose (Enulose) 20 gm Q24H PRN PO CONSTIPATION Last administered on 08:47; Admin Dose 20 GM; Start 11/16/16 at 20:30 Senna (Senokot) 1 tab HS PO Last administered on 11/24/16 20:36; Admin Dose 1 TAB; Start 11/16/16 at 21:00 Docusate Sodium (Colace) 100 mg BID PO Last administered on 11/25/16 09:01; Admin Dose 100 MG; Start 11/16/16 at 21:00 Acetaminophen (Tylenol Tab) 650 mg Q4H PRN PO PAIN Last administered on 20:36; Admin Dose 650 MG; Start 11/16/16 at 20:30 Bisacodyl 10 mg 10 mg Q24H PRN [place] CONSTIPATION; Start 11/16/16 at 20:30 Ceftriaxone Sodium (Rocephin) 50 ml @ 100 mls/hr Q24H IVPB Last administered on 11/24/16 20:38; Admin Dose 100 MLS/HR; Start 11/18/16 at 21:00 Valsartan (Diovan) 80 mg DAILY PO ; Start 11/21/16 at 09:00; Status Future Hold Assessment/Plan Chief Complaint/Hosp Course 1. Fever, Sirs, ? sepsis -Source unclear ? Viral ? pna -Patient on antibiotics to complete course for 2 more days - Blood cultures, urine cultures negative today. - Chest x-ray shows possible infiltrate versus atelectasis -Appreciate IDs recommendation -Patient clinically improving. 2. 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 Improving Plan is to continue current treatment plan continue medical management continue low-dose aspirin continue PT OT per acute rehab 2. Hypotension, orthostatic -Resolved with IV fluids -Monitor 3. Dyslipidemia continue statin therapy 4. Aortic aneurysm status post surgical repair 5. BPH continue medical management 6. Seizure. Continue Dilantin 7. Depression continue Lexapro 8 GI DVT prophylaxis. Continue PPI and SCDs 9. Anemia monitor H&H levels Problems: SHANE NICOLAS MD Nov 25, 2016 09:56
[2016-11-25] MEDS: ESCITALOPRAM 10 MG TAB PO SCH (13:01)
[2016-11-25 19:47] VITALS: BP 128/67; RESP 18
[2016-11-25] MEDS: ATORVASTATIN 10 MG TAB PO SCH (20:54)
[2016-11-25] MEDS: DUTASTERIDE 0.5 MG CAP PO SCH (20:54)
[2016-11-25] MEDS: CEFTRIAXONE 1 GM/50 ML (PMX) 50 ML IVPB SCH (20:54)
[2016-11-25] MEDS: SENNA TAB PO SCH (20:54)
[2016-11-26] MEDS: PHENYTOIN 100 MG CAP PO SCH ×3 (05:30→22:08)
[2016-11-26 07:30] VITALS: BP 129/67; RESP 18
[2016-11-26] MEDS: ASPIRIN 81 MG TAB PO SCH (08:34)
[2016-11-26] MEDS: DOCUSATE SODIUM 100 MG CAP PO SCH ×2 (08:34→21:09)
--- NOTE | 2016-11-26 11:09 | CONS ---
Date/Time of Note Date/Time of Note DATE: 11/26/16 TIME: 11:08 Consult Date/Type/Reason Admit Date/Time Nov 16, 2016 at 18:40 Type of Consultation: Infectious disease Ordering Provider: MINA FELIX DO Objective Vital Signs Date Time Temp Pulse Resp B/P Pulse Ox O2 Delivery O2 Flow Rate FiO2 11/25/16 19:47 98.3 83 18 128/67 97 11/24/16 19:54 Room Air Intake and Output 11/25/16 11/25/16 11/26/16 15:00 23:00 07:00 Intake Total 810 ml 650 ml Balance 810 ml 650 ml INTERDISCIPLINARY TEAM CONFERENCE BOWEL- Cont BLADDER-Cont SKIN- intact OT- DRESSING-standby/ min BATHING-standby/min TOILETING-standby/min PT- BED MOBILITY-standby TRANSFERS-standby AMBULATION-stand 100 feet SPEECH- COGNITION-modified independent A/P- Interdisciplinary team conference held today. Please see interdisciplinary sheet. Working toward d.c. on 11/30 with post discharge follow up of physical therapy, occupational therapy. Results/Medications Medications Current Medications Aspirin (Aspirin) 81 mg DAILY PO Last administered on 11/26/16 08:34; Admin Dose 81 MG; Start 11/17/16 at 09:00 Atorvastatin Calcium (Lipitor) 10 mg DAILY@21 PO Last administered on 11/25/16 20:54; Admin Dose 10 MG; Start 11/16/16 at 21:00 Phenytoin (Dilantin) 100 mg Q8 PO Last administered on 11/26/16 05:30; Admin Dose 100 MG; Start 11/16/16 at 22:00 Dutasteride (Avodart) 0.5 mg HS PO Last administered on 11/25/16 20:54; Admin Dose 0.5 MG; Start 11/16/16 at 21:00 Escitalopram Oxalate (Lexapro) 10 mg DAILY@13 PO Last administered on 11/25/16 13:01; Admin Dose 10 MG; Start 11/17/16 at 13:00 Oxycodone/ Acetaminophen (Percocet (5/ 325)) 1 tab Q4H PRN PO PAIN; Start 11/16 at 20:30 Magnesium Hydroxide (Milk Of Mag) 30 ml Q12H PRN PO CONSTIPATION; Start at 20:30 Lactulose (Enulose) 20 gm Q24H PRN PO CONSTIPATION Last administered on 08:47; Admin Dose 20 GM; Start 11/16/16 at 20:30 Senna (Senokot) 1 tab HS PO Last administered on 11/25/16 20:54; Admin Dose 1 TAB; Start 11/16/16 at 21:00 Docusate Sodium (Colace) 100 mg BID PO Last administered on 11/26/16 08:34; Admin Dose 100 MG; Start 11/16/16 at 21:00 Acetaminophen (Tylenol Tab) 650 mg Q4H PRN PO PAIN Last administered on 20:36; Admin Dose 650 MG; Start 11/16/16 at 20:30 Bisacodyl 10 mg 10 mg Q24H PRN [place] CONSTIPATION; Start 11/16/16 at 20:30 Ceftriaxone Sodium (Rocephin) 50 ml @ 100 mls/hr Q24H IVPB Last administered on 11/25/16 20:54; Admin Dose 100 MLS/HR; Start 11/18/16 at 21:00 Valsartan (Diovan) 80 mg DAILY PO ; Start 11/21/16 at 09:00; Status Future Hold HERNANDEZ PASTRANA MD Nov 26, 2016 11:09 HERNANDEZ PASTRANA MD Nov 26, 2016 11:09
--- NOTE | 2016-11-26 11:33 | PN ---
Date/Time of Note Date/Time of Note DATE: 11/26/16 TIME: 11:30 Assessment/Plan VTE Prophylaxis VTE Prophylaxis Intervention: other Lines/Catheters IV Catheter Type (from [facility]): Saline Lock Urinary Cath still in place: No Assessment/Plan Chief Complaint/Hosp Course 1. sepsis -Source unclear ? Viral ? pna -Patient on antibiotics. - Blood cultures, urine cultures negative today. - Chest x-ray shows possible infiltrate versus atelectasis -Appreciate IDs recommendation -Patient clinically improving. 2. 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 Improving Plan is to continue current treatment plan continue medical management continue low-dose aspirin continue PT OT per acute rehab 2. Hypotension, orthostatic -Resolved with IV fluids -Monitor 3. Dyslipidemia continue statin therapy 4. Aortic aneurysm status post surgical repair 5. BPH continue medical management 6. Seizure. Continue Dilantin 7. Depression continue Lexapro 8 GI DVT prophylaxis. Continue PPI and SCDs 10. Anemia monitor H&H levels Problems: Subjective 24 Hr Interval Summary Free Text/Dictation Patient stable no acute events Exam/Review of Systems Vital Signs Vitals Vital Signs Date Time Temp Pulse Resp B/P Pulse Ox O2 Delivery O2 Flow Rate FiO2 11/25/16 19:47 98.3 83 18 128/67 97 11/24/16 19:54 Room Air Intake and Output 11/25/16 11/25/16 11/26/16 15:00 23:00 07:00 Intake Total 810 ml 650 ml Balance 810 ml 650 ml Exam HEENT head is normocephalic pupils are reactive to light Cardiovascular heart is regular rate Lungs show diminished breath sounds at bases otherwise clear Abdomen soft nontender palpation rebound Extremities are negative for clubbing cyanosis no edema Dermatologically no rashes Musculoskeletal no joint effusion Neurologically patient has weakness right upper extremity left lower extremit Medications Medications Current Medications Aspirin (Aspirin) 81 mg DAILY PO Last administered on 11/26/16 08:34; Admin Dose 81 MG; Start 11/17/16 at 09:00 Atorvastatin Calcium (Lipitor) 10 mg DAILY@21 PO Last administered on 11/25/16 20:54; Admin Dose 10 MG; Start 11/16/16 at 21:00 Phenytoin (Dilantin) 100 mg Q8 PO Last administered on 11/26/16 05:30; Admin Dose 100 MG; Start 11/16/16 at 22:00 Dutasteride (Avodart) 0.5 mg HS PO Last administered on 11/25/16 20:54; Admin Dose 0.5 MG; Start 11/16/16 at 21:00 Escitalopram Oxalate (Lexapro) 10 mg DAILY@13 PO Last administered on 11/25/16 13:01; Admin Dose 10 MG; Start 11/17/16 at 13:00 Oxycodone/ Acetaminophen (Percocet (5/ 325)) 1 tab Q4H PRN PO PAIN; Start 11/16 at 20:30 Magnesium Hydroxide (Milk Of Mag) 30 ml Q12H PRN PO CONSTIPATION; Start at 20:30 Lactulose (Enulose) 20 gm Q24H PRN PO CONSTIPATION Last administered on 08:47; Admin Dose 20 GM; Start 11/16/16 at 20:30 Senna (Senokot) 1 tab HS PO Last administered on 11/25/16 20:54; Admin Dose 1 TAB; Start 11/16/16 at 21:00 Docusate Sodium (Colace) 100 mg BID PO Last administered on 11/26/16 08:34; Admin Dose 100 MG; Start 11/16/16 at 21:00 Acetaminophen (Tylenol Tab) 650 mg Q4H PRN PO PAIN Last administered on 20:36; Admin Dose 650 MG; Start 11/16/16 at 20:30 Bisacodyl 10 mg 10 mg Q24H PRN [place] CONSTIPATION; Start 11/16/16 at 20:30 Ceftriaxone Sodium (Rocephin) 50 ml @ 100 mls/hr Q24H IVPB Last administered on 11/25/16 20:54; Admin Dose 100 MLS/HR; Start 11/18/16 at 21:00 Valsartan (Diovan) 80 mg DAILY PO ; Start 11/21/16 at 09:00; Status Future Hold WILFREDO HALLMAN DO Nov 26, 2016 11:32
--- NOTE | 2016-11-26 13:33 | CONS ---
Date/Time of Note Date/Time of Note DATE: 11/26/16 TIME: 13:32 Assessment/Plan Assessment/Plan Chief Complaint/Hosp Course No acute changes overnight, patient is sleeping, no fevers Antimicrobials: Rocephin Physical examination: Well-nourished well-developed fragile elderly man who is in no distress. Head atraumatic, normocephalic. Sclera nonicteric. Neck is supple, trachea midline. Chest rise symmetrical, breath sounds clear. Heart S1-S2. Abdomen soft, bowel tones present. Extremities without cyanosis edema. Assessment: 1. Systemic inflammatory response syndrome==> s/p fevers and leukocytosis 2. Pneumonia 3. Acute CVA 4. Status post aortic aneurysm repair 5. BPH Plan: Remains stable, discontinue antibiotics in a.m. Problems: Consultation Date/Type/Reason Admit Date/Time Nov 16, 2016 at 18:40 Initial Consult Date 11/20/16 Type of Consultation: Infectious disease Referring Provider: MINA FELIX DO Exam/Review of Systems Vital Signs Vitals Vital Signs Date Time Temp Pulse Resp B/P Pulse Ox O2 Delivery O2 Flow Rate FiO2 11/25/16 19:47 98.3 83 18 128/67 97 11/24/16 19:54 Room Air Intake and Output 11/25/16 11/25/16 11/26/16 15:00 23:00 07:00 Intake Total 810 ml 650 ml Balance 810 ml 650 ml Medications Medications Current Medications Aspirin (Aspirin) 81 mg DAILY PO Last administered on 11/26/16 08:34; Admin Dose 81 MG; Start 11/17/16 at 09:00 Atorvastatin Calcium (Lipitor) 10 mg DAILY@21 PO Last administered on 11/25/16 20:54; Admin Dose 10 MG; Start 11/16/16 at 21:00 Phenytoin (Dilantin) 100 mg Q8 PO Last administered on 11/26/16 05:30; Admin Dose 100 MG; Start 11/16/16 at 22:00 Dutasteride (Avodart) 0.5 mg HS PO Last administered on 11/25/16 20:54; Admin Dose 0.5 MG; Start 11/16/16 at 21:00 Escitalopram Oxalate (Lexapro) 10 mg DAILY@13 PO Last administered on 11/25/16 13:01; Admin Dose 10 MG; Start 11/17/16 at 13:00 Oxycodone/ Acetaminophen (Percocet (5/ 325)) 1 tab Q4H PRN PO PAIN; Start 11/16 at 20:30 Magnesium Hydroxide (Milk Of Mag) 30 ml Q12H PRN PO CONSTIPATION; Start at 20:30 Lactulose (Enulose) 20 gm Q24H PRN PO CONSTIPATION Last administered on 08:47; Admin Dose 20 GM; Start 11/16/16 at 20:30 Senna (Senokot) 1 tab HS PO Last administered on 11/25/16 20:54; Admin Dose 1 TAB; Start 11/16/16 at 21:00 Docusate Sodium (Colace) 100 mg BID PO Last administered on 11/26/16 08:34; Admin Dose 100 MG; Start 11/16/16 at 21:00 Acetaminophen (Tylenol Tab) 650 mg Q4H PRN PO PAIN Last administered on 20:36; Admin Dose 650 MG; Start 11/16/16 at 20:30 Bisacodyl 10 mg 10 mg Q24H PRN [place] CONSTIPATION; Start 11/16/16 at 20:30 Ceftriaxone Sodium (Rocephin) 50 ml @ 100 mls/hr Q24H IVPB Last administered on 11/25/16 20:54; Admin Dose 100 MLS/HR; Start 11/18/16 at 21:00 Valsartan (Diovan) 80 mg DAILY PO ; Start 11/21/16 at 09:00; Status Future Hold MILO REYES NP Nov 26, 2016 13:33
[2016-11-26] MEDS: ESCITALOPRAM 10 MG TAB PO SCH (14:09)
[2016-11-26 20:00] VITALS: BP 121/70; RESP 18
[2016-11-26] MEDS: SENNA TAB PO SCH (21:09)
[2016-11-26] MEDS: DUTASTERIDE 0.5 MG CAP PO SCH (21:09)
[2016-11-26] MEDS: ATORVASTATIN 10 MG TAB PO SCH (21:09)
[2016-11-27] MEDS: PHENYTOIN 100 MG CAP PO SCH ×3 (06:18→21:15)
[2016-11-27 06:30] LABS: ADD SCAN DIFF NO
[2016-11-27 06:46] LABS: BASOPHIL # 0.1 10^3/ul (0.0-0.1); BASOPHILS % 0.7 % (0.0-2.0); EOSINOPHILS # 0.2 10^3/ul (0.0-0.5); EOSINOPHILS % 2.1 % (0.0-7.0); HEMOGLOBIN 9.5 g/dl (14.0-18.0); LYMPHOCYTES % 13.1 % (15.0-51.0); MEAN CORPUSCULAR HEMOGLOBIN 28.9 pg (29.0-33.0); MEAN CORPUSCULAR HGB CONC 31.7 g/dl (32.0-37.0); MEAN CORPUSCULAR VOLUME 91.2 fl (82.0-101.0); MEAN PLATELET VOLUME 9.4 fl (7.4-10.4); MONOCYTE # 0.7 10^3/ul (0.3-0.9); MONOCYTES % 8.7 % (0.0-11.0); NEUTROPHIL # 5.7 10^3/ul (1.6-7.5); NEUTROPHILS % 74.4 % (39.0-77.0); PLATELET COUNT 409 10^3/UL (140-415); RED BLOOD COUNT 3.29 10^6/ul (4.70-6.10); RED CELL DISTRIBUTION WIDTH 13.8 % (11.5-14.5); WHITE BLOOD COUNT 7.7 10^3/ul (4.8-10.8)
[2016-11-27 07:30] LABS: CREATININE 0.86 mg/dl (0.61-1.24); MAGNESIUM 2.1 mg/dl (1.7-2.5); PHOSPHORUS 3.5 mg/dl (2.5-4.9); POTASSIUM 4.4 mmol/L (3.5-5.1)
[2016-11-27 08:00] VITALS: BP 121/66; RESP 18
[2016-11-27] MEDS: DOCUSATE SODIUM 100 MG CAP PO SCH ×2 (08:51→21:15)
[2016-11-27] MEDS: ASPIRIN 81 MG TAB PO SCH (08:51)
--- NOTE | 2016-11-27 11:31 | PN ---
Date/Time of Note Date/Time of Note DATE: 11/27/16 TIME: 11:30 Assessment/Plan Lines/Catheters IV C[facility]ter Type (from [facility]): Saline Lock Urinary Cath still in place: No Assessment/Plan Chief Complaint/Hosp Course 1. sepsis -Source unclear ? Viral ? pna -Patient completed antibiotic course. - Blood cultures, urine cultures negative -Appreciate IDs recommendation -Patient clinically improving. 2. 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 Improving Plan is to continue current treatment plan continue medical management continue low-dose aspirin continue PT OT per acute rehab 2. Hypotension, orthostatic -Resolved with IV fluids -Monitor 3. Dyslipidemia continue statin therapy 4. Aortic aneurysm status post surgical repair 5. BPH continue medical management 6. Seizure. Continue Dilantin 7. Depression continue Lexapro 8 GI DVT prophylaxis. Continue PPI and SCDs 10. Anemia monitor H&H levels Problems: Subjective 24 Hr Interval Summary Free Text/Dictation Patient is stable no acute events -Working well physical therapy Exam/Review of Systems Vital Signs Vitals Vital Signs Date Time Temp Pulse Resp B/P Pulse Ox O2 Delivery O2 Flow Rate FiO2 11/27/16 08:00 98.8 74 18 121/66 96 11/24/16 19:54 Room Air Intake and Output 11/26/16 11/26/16 11/27/16 15:00 23:00 07:00 Intake Total 460 ml Balance 460 ml Exam HEENT head is normocephalic pupils are reactive to light Cardiovascular heart is regular rate Lungs show diminished breath sounds at bases otherwise clear Abdomen soft nontender palpation rebound Extremities are negative for clubbing cyanosis no edema Dermatologically no rashes Musculoskeletal no joint effusion Neurologically patient has weakness right upper extremity left lower extremit Results Result Diagram: 11/27/16 0607 11/27/16 0607 Results 24 hrs Laboratory Tests Test 11/27/16 06:07 White Blood Count 7.7 # Red Blood Count 3.29 L Hemoglobin 9.5 L Hematocrit 30.0 L Mean Corpuscular Volume 91.2 Mean Corpuscular Hemoglobin 28.9 L Mean Corpuscular Hemoglobin Concent 31.7 L Red Cell Distribution Width 13.8 Platelet Count 409 Mean Platelet Volume 9.4 Neutrophils % 74.4 Lymphocytes % 13.1 L Monocytes % 8.7 Eosinophils % 2.1 Basophils % 0.7 Nucleated Red Blood Cells % 0.0 Neutrophils # 5.7 Lymphocytes # 1.0 Monocytes # 0.7 Eosinophils # 0.2 Basophils # 0.1 Nucleated Red Blood Cells # 0.0 Sodium Level 136 Potassium Level 4.4 Chloride Level 104 Carbon Dioxide Level 28 Anion Gap 8 Blood Urea Nitrogen 12 Creatinine 0.86 Glucose Level 93 Calcium Level 10.0 Phosphorus Level 3.5 Magnesium Level 2.1 Medications Medications Current Medications Aspirin (Aspirin) 81 mg DAILY PO Last administered on 11/27/16 08:51; Admin Dose 81 MG; Start 11/17/16 at 09:00 Atorvastatin Calcium (Lipitor) 10 mg DAILY@21 PO Last administered on 21:09; Admin Dose 10 MG; Start 11/16/16 at 21:00 Phenytoin (Dilantin) 100 mg Q8 PO Last administered on 11/27/16 06:18; Admin Dose 100 MG; Start 11/16/16 at 22:00 Dutasteride (Avodart) 0.5 mg HS PO Last administered on 11/26/16 21:09; Admin Dose 0.5 MG; Start 11/16/16 at 21:00 Escitalopram Oxalate (Lexapro) 10 mg DAILY@13 PO Last administered on 14:09; Admin Dose 10 MG; Start 11/17/16 at 13:00 Oxycodone/ Acetaminophen (Percocet (5/ 325)) 1 tab Q4H PRN PO PAIN; Start 11/16 at 20:30 Magnesium Hydroxide (Milk Of Mag) 30 ml Q12H PRN PO CONSTIPATION; Start at 20:30 Lactulose (Enulose) 20 gm Q24H PRN PO CONSTIPATION Last administered on 08:47; Admin Dose 20 GM; Start 11/16/16 at 20:30 Senna (Senokot) 1 tab HS PO Last administered on 11/26/16 21:09; Admin Dose 1 TAB; Start 11/16/16 at 21:00 Docusate Sodium (Colace) 100 mg BID PO Last administered on 11/27/16 08:51; Admin Dose 100 MG; Start 11/16/16 at 21:00 Acetaminophen (Tylenol Tab) 650 mg Q4H PRN PO PAIN Last administered on 7/2/ 17at 20:36; Admin Dose 650 MG; Start 11/16/16 at 20:30 Bisacodyl (Dulcolax Supp) 10 mg Q24H PRN [place] CONSTIPATION; Start 11/16/16 at 20: 30 Valsartan (Diovan) 80 mg DAILY PO ; Start 11/21/16 at 09:00; Status Future Hold WILFREDO HALLMAN DO Nov 27, 2016 11:31
--- NOTE | 2016-11-27 13:17 | CONS ---
Date/Time of Note Date/Time of Note DATE: 11/27/16 TIME: 13:15 Consult Date/Type/Reason Admit Date/Time Nov 16, 2016 at 18:40 Type of Consultation: Infectious disease Ordering Provider: MINA FELIX DO Subjective Comfortable doing well Objective Minimal assist Vital Signs Date Time Temp Pulse Resp B/P Pulse Ox O2 Delivery O2 Flow Rate FiO2 11/27/16 08:00 98.8 74 18 121/66 96 11/24/16 19:54 Room Air Intake and Output 11/26/16 11/26/16 11/27/16 15:00 23:00 07:00 Intake Total 460 ml Balance 460 ml Results/Medications Result Diagram: 11/27/16 0607 11/27/16 0607 Results 24 hrs Laboratory Tests Test 11/27/16 06:07 White Blood Count 7.7 # Red Blood Count 3.29 L Hemoglobin 9.5 L Hematocrit 30.0 L Mean Corpuscular Volume 91.2 Mean Corpuscular Hemoglobin 28.9 L Mean Corpuscular Hemoglobin Concent 31.7 L Red Cell Distribution Width 13.8 Platelet Count 409 Mean Platelet Volume 9.4 Neutrophils % 74.4 Lymphocytes % 13.1 L Monocytes % 8.7 Eosinophils % 2.1 Basophils % 0.7 Nucleated Red Blood Cells % 0.0 Neutrophils # 5.7 Lymphocytes # 1.0 Monocytes # 0.7 Eosinophils # 0.2 Basophils # 0.1 Nucleated Red Blood Cells # 0.0 Sodium Level 136 Potassium Level 4.4 Chloride Level 104 Carbon Dioxide Level 28 Anion Gap 8 Blood Urea Nitrogen 12 Creatinine 0.86 Glucose Level 93 Calcium Level 10.0 Phosphorus Level 3.5 Magnesium Level 2.1 Medications Current Medications Aspirin (Aspirin) 81 mg DAILY PO Last administered on 11/27/16 08:51; Admin Dose 81 MG; Start 11/17/16 at 09:00 Atorvastatin Calcium (Lipitor) 10 mg DAILY@21 PO Last administered on 21:09; Admin Dose 10 MG; Start 11/16/16 at 21:00 Phenytoin (Dilantin) 100 mg Q8 PO Last administered on 11/27/16 06:18; Admin Dose 100 MG; Start 11/16/16 at 22:00 Dutasteride (Avodart) 0.5 mg HS PO Last administered on 11/26/16 21:09; Admin Dose 0.5 MG; Start 11/16/16 at 21:00 Escitalopram Oxalate (Lexapro) 10 mg DAILY@13 PO Last administered on 14:09; Admin Dose 10 MG; Start 11/17/16 at 13:00 Oxycodone/ Acetaminophen (Percocet (5/ 325)) 1 tab Q4H PRN PO PAIN; Start 11/16 at 20:30 Magnesium Hydroxide (Milk Of Mag) 30 ml Q12H PRN PO CONSTIPATION; Start at 20:30 Lactulose (Enulose) 20 gm Q24H PRN PO CONSTIPATION Last administered on 08:47; Admin Dose 20 GM; Start 11/16/16 at 20:30 Senna (Senokot) 1 tab HS PO Last administered on 11/26/16 21:09; Admin Dose 1 TAB; Start 11/16/16 at 21:00 Docusate Sodium (Colace) 100 mg BID PO Last administered on 11/27/16 08:51; Admin Dose 100 MG; Start 11/16/16 at 21:00 Acetaminophen (Tylenol Tab) 650 mg Q4H PRN PO PAIN Last administered on 20:36; Admin Dose 650 MG; Start 11/16/16 at 20:30 Bisacodyl (Dulcolax Supp) 10 mg Q24H PRN [place] CONSTIPATION; Start 11/16/16 at 20: 30 Valsartan (Diovan) 80 mg DAILY PO ; Start 11/21/16 at 09:00; Status Future Hold Assessment/Plan Additional Assessment/Plan Rehabilitation - bilateral cortical infarct CVA with bilateral weakness right worse than left Patient remains motivated for all activities with excellent functional progress Orthostatic hypotension-resolved status post abdominal aortic aneurysm repair Status post intubation BPH History of cervical fusion History of bilateral hip surgery Hypertension Seizure disorder Functional Impact of comorbidity-patient's weakness is affecting functional status although he is progressing quite nicely with the interdisciplinary plan HERNANDEZ PASTRANA MD Nov 27, 2016 13:17
[2016-11-27] MEDS: ESCITALOPRAM 10 MG TAB PO SCH (14:36)
[2016-11-27 20:00] VITALS: BP 128/60; RESP 18
[2016-11-27] MEDS: SENNA TAB PO SCH (21:15)
[2016-11-27] MEDS: DUTASTERIDE 0.5 MG CAP PO SCH (21:15)
[2016-11-27] MEDS: ATORVASTATIN 10 MG TAB PO SCH (21:15)
[2016-11-28] MEDS: PHENYTOIN 100 MG CAP PO SCH ×3 (06:22→20:41)
[2016-11-28 07:43] VITALS: BP 113/61; RESP 18
[2016-11-28] MEDS: DOCUSATE SODIUM 100 MG CAP PO SCH ×2 (09:00→20:42)
[2016-11-28] MEDS: ASPIRIN 81 MG TAB PO SCH (09:32)
--- NOTE | 2016-11-28 11:57 | CONS ---
Date/Time of Note Date/Time of Note DATE: 11/28/16 TIME: 11:56 Consult Date/Type/Reason Admit Date/Time Nov 16, 2016 at 18:40 Type of Consultation: Infectious disease Ordering Provider: MINA FELIX DO Subjective Comfortable Objective Contact-guard standby assist ambulation Vital Signs Date Time Temp Pulse Resp B/P Pulse Ox O2 Delivery O2 Flow Rate FiO2 11/28/16 07:43 98.7 83 18 113/61 97 11/24/16 19:54 Room Air Intake and Output 11/27/16 11/27/16 11/28/16 14:59 22:59 06:59 Intake Total 800 ml 500 ml 240 ml Output Total 200 ml 250 ml Balance 600 ml 500 ml -10 ml Results/Medications Result Diagram: 11/27/1660611/27/16 06 Medications Current Medications Aspirin (Aspirin) 81 mg DAILY PO Last administered on 11/28/16 09:32; Admin Dose 81 MG; Start 11/17/16 at 09:00 Atorvastatin Calcium (Lipitor) 10 mg DAILY@21 PO Last administered on 21:15; Admin Dose 10 MG; Start 11/16/16 at 21:00 Phenytoin (Dilantin) 100 mg Q8 PO Last administered on 11/28/16 06:22; Admin Dose 100 MG; Start 11/16/16 at 22:00 Dutasteride (Avodart) 0.5 mg HS PO Last administered on 11/27/16 21:15; Admin Dose 0.5 MG; Start 11/16/16 at 21:00 Escitalopram Oxalate (Lexapro) 10 mg DAILY@13 PO Last administered on 14:36; Admin Dose 10 MG; Start 11/17/16 at 13:00 Oxycodone/ Acetaminophen (Percocet (5/ 325)) 1 tab Q4H PRN PO PAIN; Start 11/16 at 20:30 Magnesium Hydroxide (Milk Of Mag) 30 ml Q12H PRN PO CONSTIPATION; Start at 20:30 Lactulose (Enulose) 20 gm Q24H PRN PO CONSTIPATION Last administered on 08:47; Admin Dose 20 GM; Start 11/16/16 at 20:30 Senna (Senokot) 1 tab HS PO Last administered on 11/27/16 21:15; Admin Dose 1 TAB; Start 11/16/16 at 21:00 Docusate Sodium (Colace) 100 mg BID PO Last administered on 11/27/16 21:15; Admin Dose 100 MG; Start 11/16/16 at 21:00 Acetaminophen (Tylenol Tab) 650 mg Q4H PRN PO PAIN Last administered on 20:36; Admin Dose 650 MG; Start 11/16/16 at 20:30 Bisacodyl (Dulcolax Supp) 10 mg Q24H PRN [place] CONSTIPATION; Start 11/16/16 at 20: 30 Valsartan (Diovan) 80 mg DAILY PO ; Start 11/21/16 at 09:00; Status Future Hold Assessment/Plan Additional Assessment/Plan Rehabilitation - bilateral cortical infarct CVA with bilateral weakness right worse than left Overall significant gains with functional status, continue treatment plan Orthostatic hypotension-resolved status post abdominal aortic aneurysm repair Status post intubation BPH History of cervical fusion History of bilateral hip surgery Hypertension Seizure disorder HERNANDEZ PASTRANA MD Nov 28, 2016 11:56
[2016-11-28] MEDS: ESCITALOPRAM 10 MG TAB PO SCH (13:38)
[2016-11-28] MEDS: DUTASTERIDE 0.5 MG CAP PO SCH (20:41)
[2016-11-28] MEDS: ATORVASTATIN 10 MG TAB PO SCH (20:42)
[2016-11-28] MEDS: SENNA TAB PO SCH (20:42)
[2016-11-29] MEDS: PHENYTOIN 100 MG CAP PO SCH ×3 (06:46→21:22)
[2016-11-29 07:30] VITALS: BP 135/68; RESP 18
[2016-11-29] MEDS: ASPIRIN 81 MG TAB PO SCH (08:45)
[2016-11-29] MEDS: DOCUSATE SODIUM 100 MG CAP PO SCH ×2 (08:45→21:22)
--- NOTE | 2016-11-29 11:00 | PN ---
Date/Time of Note Date/Time of Note DATE: 11/29/16 TIME: 10:59 Assessment/Plan Lines/Catheters IV [facility] Type (from [facility]): Saline Lock Urinary Cath still in place: No Assessment/Plan Chief Complaint/Hosp Course 1. sepsis -Source unclear ? Viral ? pna -Patient completed antibiotic course. - Blood cultures, urine cultures negative -Appreciate IDs recommendation -Patient clinically improving. 2. 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 Improving Plan is to continue current treatment plan continue medical management continue low-dose aspirin continue PT OT per acute rehab 2. Hypotension, orthostatic -Resolved with IV fluids -Monitor 3. Dyslipidemia continue statin therapy 4. Aortic aneurysm status post surgical repair 5. BPH continue medical management 6. Seizure. Continue Dilantin 7. Depression continue Lexapro 8 GI DVT prophylaxis. Continue PPI and SCDs 10. Anemia monitor H&H levels Problems: Subjective 24 Hr Interval Summary Free Text/Dictation Patient stable no acute events Exam/Review of Systems Vital Signs Vitals Vital Signs Date Time Temp Pulse Resp B/P Pulse Ox O2 Delivery O2 Flow Rate FiO2 11/28/16 07:43 98.7 83 18 113/61 97 Intake and Output 11/28/16 11/28/16 11/29/16 15:00 23:00 07:00 Intake Total 1000 ml 500 ml 360 ml Output Total 200 ml 1400 ml Balance 1000 ml 300 ml -1040 ml Exam HEENT head is normocephalic pupils are reactive to light Cardiovascular heart is regular rate Lungs show diminished breath sounds at bases otherwise clear Abdomen soft nontender palpation rebound Extremities are negative for clubbing cyanosis no edema Dermatologically no rashes Musculoskeletal no joint effusion Neurologically patient has weakness right upper extremity left lower extremit Results Result Diagram: 11/27/16 0607 11/27/16 0607 Medications Medications Current Medications Aspirin (Aspirin) 81 mg DAILY PO Last administered on 11/29/16 08:45; Admin Dose 81 MG; Start 11/17/16 at 09:00 Atorvastatin Calcium (Lipitor) 10 mg DAILY@21 PO Last administered on 20:42; Admin Dose 10 MG; Start 11/16/16 at 21:00 Phenytoin (Dilantin) 100 mg Q8 PO Last administered on 11/29/16 06:46; Admin Dose 100 MG; Start 11/16/16 at 22:00 Dutasteride (Avodart) 0.5 mg HS PO Last administered on 11/28/16 20:41; Admin Dose 0.5 MG; Start 11/16/16 at 21:00 Escitalopram Oxalate (Lexapro) 10 mg DAILY@13 PO Last administered on 13:38; Admin Dose 10 MG; Start 11/17/16 at 13:00 Oxycodone/ Acetaminophen (Percocet (5/ 325)) 1 tab Q4H PRN PO PAIN; Start 11/16 at 20:30 Magnesium Hydroxide (Milk Of Mag) 30 ml Q12H PRN PO CONSTIPATION; Start at 20:30 Lactulose (Enulose) 20 gm Q24H PRN PO CONSTIPATION Last administered on 08:47; Admin Dose 20 GM; Start 11/16/16 at 20:30 Senna (Senokot) 1 tab HS PO Last administered on 11/28/16 20:42; Admin Dose 1 TAB; Start 11/16/16 at 21:00 Docusate Sodium (Colace) 100 mg BID PO Last administered on 11/29/16 08:45; Admin Dose 100 MG; Start 11/16/16 at 21:00 Acetaminophen (Tylenol Tab) 650 mg Q4H PRN PO PAIN Last administered on 20:36; Admin Dose 650 MG; Start 11/16/16 at 20:30 Bisacodyl (Dulcolax Supp) [address] [place] CONSTIPATION; Start 11/16/16 at 20: 30 Valsartan (Diovan) 80 mg DAILY PO ; Start 11/21/16 at 09:00; Status Future Hold WILFREDO HALLMAN DO Nov 29, 2016 11:00
--- NOTE | 2016-11-29 12:08 | CONS ---
Date/Time of Note Date/Time of Note DATE: 11/29/16 TIME: 12:08 Consult Date/Type/Reason Admit Date/Time Nov 16, 2016 at 18:40 Type of Consultation: Infectious disease Ordering Provider: MINA FELIX DO Subjective Comfortable Objective Lungs clear Standby assist ambulation 150 feet Vital Signs Date Time Temp Pulse Resp B/P Pulse Ox O2 Delivery O2 Flow Rate FiO2 11/28/16 07:43 98.7 83 18 113/61 97 Intake and Output 11/28/16 11/28/16 11/29/16 15:00 23:00 07:00 Intake Total 1000 ml 500 ml 360 ml Output Total 200 ml 1400 ml Balance 1000 ml 300 ml -1040 ml Results/Medications Result Diagram: 11/27/16 0607 11/27/16 0607 Medications Current Medications Aspirin (Aspirin) 81 mg DAILY PO Last administered on 11/29/16 08:45; Admin Dose 81 MG; Start 11/17/16 at 09:00 Atorvastatin Calcium (Lipitor) 10 mg DAILY@21 PO Last administered on 20:42; Admin Dose 10 MG; Start 11/16/16 at 21:00 Phenytoin (Dilantin) 100 mg Q8 PO Last administered on 11/29/16 06:46; Admin Dose 100 MG; Start 11/16/16 at 22:00 Dutasteride (Avodart) 0.5 mg HS PO Last administered on 11/28/16 20:41; Admin Dose 0.5 MG; Start 11/16/16 at 21:00 Escitalopram Oxalate (Lexapro) 10 mg DAILY@13 PO Last administered on 13:38; Admin Dose 10 MG; Start 11/17/16 at 13:00 Oxycodone/ Acetaminophen (Percocet (5/ 325)) 1 tab Q4H PRN PO PAIN; Start 11/16 at 20:30 Magnesium Hydroxide (Milk Of Mag) 30 ml Q12H PRN PO CONSTIPATION; Start at 20:30 Lactulose (Enulose) 20 gm Q24H PRN PO CONSTIPATION Last administered on 08:47; Admin Dose 20 GM; Start 11/16/16 at 20:30 Senna (Senokot) 1 tab HS PO Last administered on 11/28/16 20:42; Admin Dose 1 TAB; Start 11/16/16 at 21:00 Docusate Sodium (Colace) 100 mg BID PO Last administered on 11/29/16 08:45; Admin Dose 100 MG; Start 11/16/16 at 21:00 Acetaminophen (Tylenol Tab) 650 mg Q4H PRN PO PAIN Last administered on 20:36; Admin Dose 650 MG; Start 11/16/16 at 20:30 Bisacodyl (Dulcolax Supp) 10 mg Q24H PRN [place] CONSTIPATION; Start 11/16/16 at 20: 30 Valsartan (Diovan) 80 mg DAILY PO ; Start 11/21/16 at 09:00; Status Future Hold Assessment/Plan Additional Assessment/Plan Rehabilitation - bilateral cortical infarct CVA with bilateral weakness right worse than left Patient making steady progress continue treatment plan Orthostatic hypotension-resolved status post abdominal aortic aneurysm repair Status post intubation BPH History of cervical fusion History of bilateral hip surgery Hypertension Seizure disorder HERNANDEZ PASTRANA MD Nov 29, 2016 12:08
[2016-11-29] MEDS: ESCITALOPRAM 10 MG TAB PO SCH (14:42)
[2016-11-29] MEDS: ACETAMINOPHEN 325 MG TAB PO PRN (15:02)
[2016-11-29 19:47] VITALS: BP 127/62; RESP 18
[2016-11-29] MEDS: SENNA TAB PO SCH (21:00)
[2016-11-29] MEDS: DUTASTERIDE 0.5 MG CAP PO SCH (21:21)
[2016-11-29] MEDS: ATORVASTATIN 10 MG TAB PO SCH (21:21)
[2016-11-30] MEDS: PHENYTOIN 100 MG CAP PO SCH ×3 (06:23→21:17)
[2016-11-30 07:48] VITALS: BP 118/77; RESP 17
[2016-11-30] MEDS: DOCUSATE SODIUM 100 MG CAP PO SCH ×2 (08:38→21:17)
[2016-11-30] MEDS: ASPIRIN 81 MG TAB PO SCH (08:38)
--- NOTE | 2016-11-30 11:06 | CONS ---
Date/Time of Note Date/Time of Note DATE: 11/30/16 TIME: 11:05 Consult Date/Type/Reason Admit Date/Time Nov 16, 2016 at 18:40 Initial Consult Date 11/20/16 Type of Consultation: im Ordering Provider: MINA FELIX DO Subjective pt. seen and examined no new c/o. tolerating pt.ot. Objective Vital Signs Date Time Temp Pulse Resp B/P Pulse Ox O2 Delivery O2 Flow Rate FiO2 11/30/16 07:48 98.0 92 17 118/77 97 Intake and Output 11/29/16 11/29/16 11/30/16 15:00 23:00 07:00 Intake Total 420 ml 1050 ml Output Total 150 ml 650 ml Balance -150 ml 420 ml 400 ml Exam HEENT head is normocephalic pupils are reactive to light Cardiovascular heart is regular rate Lungs show diminished breath sounds at bases otherwise clear Abdomen soft nontender palpation rebound Extremities are negative for clubbing cyanosis no edema Dermatologically no rashes Musculoskeletal no joint effusion Neurologically patient has weakness right upper extremity left lower extremit Results/Medications Result Diagram: 11/27/16 0607 11/27/16 0607 Medications Current Medications Aspirin (Aspirin) 81 mg DAILY PO Last administered on 11/30/16 08:38; Admin Dose 81 MG; Start 11/17/16 at 09:00 Atorvastatin Calcium (Lipitor) 10 mg DAILY@21 PO Last administered on 21:21; Admin Dose 10 MG; Start 11/16/16 at 21:00 Phenytoin (Dilantin) 100 mg Q8 PO Last administered on 11/30/16 06:23; Admin Dose 100 MG; Start 11/16/16 at 22:00 Dutasteride (Avodart) 0.5 mg HS PO Last administered on 11/29/16 21:21; Admin Dose 0.5 MG; Start 11/16/16 at 21:00 Escitalopram Oxalate (Lexapro) 10 mg DAILY@13 PO Last administered on 14:42; Admin Dose 10 MG; Start 11/17/16 at 13:00 Oxycodone/ Acetaminophen (Percocet (5/ 325)) 1 tab Q4H PRN PO PAIN; Start 11/16 at 20:30 Magnesium Hydroxide (Milk Of Mag) 30 ml Q12H PRN PO CONSTIPATION; Start at 20:30 Lactulose (Enulose) 20 gm Q24H PRN PO CONSTIPATION Last administered on 08:47; Admin Dose 20 GM; Start 11/16/16 at 20:30 Senna (Senokot) 1 tab HS PO Last administered on 11/28/16 20:42; Admin Dose 1 TAB; Start 11/16/16 at 21:00 Docusate Sodium (Colace) 100 mg BID PO Last administered on 11/30/16 08:38; Admin Dose 100 MG; Start 11/16/16 at 21:00 Acetaminophen (Tylenol Tab) 650 mg Q4H PRN PO PAIN Last administered on 15:02; Admin Dose 650 MG; Start 11/16/16 at 20:30 Bisacodyl (Dulcolax Supp) 10 mg Q24H PRN [place] CONSTIPATION; Start 11/16/16 at 20: 30 Valsartan (Diovan) 80 mg DAILY PO ; Start 11/21/16 at 09:00; Status Future Hold Assessment/Plan Chief Complaint/Hosp Course 1. sepsis -Source unclear ? Viral ? pna -Patient completed antibiotic course. - Blood cultures, urine cultures negative -Appreciate IDs recommendation -Patient clinically improving. 2. 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 Improving Plan is to continue current treatment plan continue medical management continue low-dose aspirin continue PT OT per acute rehab 2. Hypotension, orthostatic -Resolved with IV fluids -Monitor 3. Dyslipidemia continue statin therapy 4. Aortic aneurysm status post surgical repair 5. BPH continue medical management 6. Seizure. Continue Dilantin 7. Depression continue Lexapro 8 GI DVT prophylaxis. Continue PPI and SCDs 10. Anemia monitor H&H levels Problems: MARLENE SAUCEDO MD Nov 30, 2016 11:06
--- NOTE | 2016-11-30 12:55 | CONS ---
Date/Time of Note Date/Time of Note DATE: 11/30/16 TIME: 12:54 Consult Date/Type/Reason Admit Date/Time Nov 16, 2016 at 18:40 Type of Consultation: im Ordering Provider: MINA FELIX DO Objective Lungs clear Standby assist to contact-guard assist Vital Signs Date Time Temp Pulse Resp B/P Pulse Ox O2 Delivery O2 Flow Rate FiO2 11/30/16 07:48 98.0 92 17 118/77 97 Intake and Output 11/29/16 11/29/16 11/30/16 15:00 23:00 07:00 Intake Total 420 ml 1050 ml Output Total 150 ml 650 ml Balance -150 ml 420 ml 400 ml Results/Medications Result Diagram: 11/27/16 0607 11/27/16 0607 Medications Current Medications Aspirin (Aspirin) 81 mg DAILY PO Last administered on 11/30/16 08:38; Admin Dose 81 MG; Start 11/17/16 at 09:00 Atorvastatin Calcium (Lipitor) 10 mg DAILY@21 PO Last administered on 21:21; Admin Dose 10 MG; Start 11/16/16 at 21:00 Phenytoin (Dilantin) 100 mg Q8 PO Last administered on 11/30/16 06:23; Admin Dose 100 MG; Start 11/16/16 at 22:00 Dutasteride (Avodart) 0.5 mg HS PO Last administered on 11/29/16 21:21; Admin Dose 0.5 MG; Start 11/16/16 at 21:00 Escitalopram Oxalate (Lexapro) 10 mg DAILY@13 PO Last administered on 14:42; Admin Dose 10 MG; Start 11/17/16 at 13:00 Oxycodone/ Acetaminophen (Percocet (5/ 325)) 1 tab Q4H PRN PO PAIN; Start 11/16 at 20:30 Magnesium Hydroxide (Milk Of Mag) 30 ml Q12H PRN PO CONSTIPATION; Start at 20:30 Lactulose (Enulose) 20 gm Q24H PRN PO CONSTIPATION Last administered on 08:47; Admin Dose 20 GM; Start 11/16/16 at 20:30 Senna (Senokot) 1 tab HS PO Last administered on 11/28/16 20:42; Admin Dose 1 TAB; Start 11/16/16 at 21:00 Docusate Sodium (Colace) 100 mg BID PO Last administered on 11/30/16 08:38; Admin Dose 100 MG; Start 11/16/16 at 21:00 Acetaminophen (Tylenol Tab) 650 mg Q4H PRN PO PAIN Last administered on 15:02; Admin Dose 650 MG; Start 11/16/16 at 20:30 Bisacodyl (Dulcolax Supp) 10 mg Q24H PRN [place] CONSTIPATION; Start 11/16/16 at 20: 30 Valsartan (Diovan) 80 mg DAILY PO ; Start 11/21/16 at 09:00; Status Future Hold Assessment/Plan Additional Assessment/Plan Rehabilitation - bilateral cortical infarct CVA with bilateral weakness right worse than left Continue treatment plan Orthostatic hypotension-resolved status post abdominal aortic aneurysm repair Status post intubation BPH History of cervical fusion History of bilateral hip surgery Hypertension Seizure disorder HERNANDEZ PASTRANA MD Nov 30, 2016 12:55
[2016-11-30] MEDS: ESCITALOPRAM 10 MG TAB PO SCH (13:40)
[2016-11-30 20:09] VITALS: BP 141/67; RESP 18
[2016-11-30] MEDS: SENNA TAB PO SCH (21:17)
[2016-11-30] MEDS: DUTASTERIDE 0.5 MG CAP PO SCH (21:17)
[2016-11-30] MEDS: ATORVASTATIN 10 MG TAB PO SCH (21:17)
[2016-12-01] MEDS ORDERED: ALPRAZOLAM 0.25 MG TAB PO ONE (02:30)
[2016-12-01] MEDS: PHENYTOIN 100 MG CAP PO SCH ×3 (07:21→21:27)
[2016-12-01 07:30] VITALS: BP 158/77; RESP 18
[2016-12-01 08:04] VITALS: BP 149/74; PULSE 86
[2016-12-01 08:40] VITALS: BP 125/75; PULSE 94
[2016-12-01] MEDS: ASPIRIN 81 MG TAB PO SCH (09:08)
[2016-12-01] MEDS: DOCUSATE SODIUM 100 MG CAP PO SCH ×2 (09:08→21:25)
--- NOTE | 2016-12-01 12:26 | CONS ---
Date/Time of Note Date/Time of Note DATE: 12/01/16 TIME: 12:25 Consult Date/Type/Reason Admit Date/Time Nov 16, 2016 at 18:40 Initial Consult Date 11/20/16 Type of Consultation: im Ordering Provider: MINA FELIX DO Subjective pt. seen and examined no new c/o. tolerating pt.ot. had anxiety overnight. denies depression. Exam HEENT head is normocephalic pupils are reactive to light Cardiovascular heart is regular rate Lungs show diminished breath sounds at bases otherwise clear Abdomen soft nontender palpation rebound Extremities are negative for clubbing cyanosis no edema Dermatologically no rashes Musculoskeletal no joint effusion Neurologically patient has weakness right upper extremity left lower extremit Objective Vital Signs Date Time Temp Pulse Resp B/P Pulse Ox O2 Delivery O2 Flow Rate FiO2 12/01/16 08:40 94 125/75 12/01/16 07:30 98.5 18 97 Intake and Output 11/30/16 11/30/16 12/01/16 15:00 23:00 07:00 Intake Total 890 ml Output Total 250 ml Balance 640 ml Results/Medications Result Diagram: 11/27/16 0607 11/27/16 0607 Medications Current Medications Aspirin (Aspirin) 81 mg DAILY PO Last administered on 12/01/16 09:08; Admin Dose 81 MG; Start 11/17/16 at 09:00 Atorvastatin Calcium (Lipitor) 10 mg DAILY@21 PO Last administered on 21:17; Admin Dose 10 MG; Start 11/16/16 at 21:00 Phenytoin (Dilantin) 100 mg Q8 PO Last administered on 12/01/16 07:21; Admin Dose 100 MG; Start 11/16/16 at 22:00 Dutasteride (Avodart) 0.5 mg HS PO Last administered on 11/30/16 21:17; Admin Dose 0.5 MG; Start 11/16/16 at 21:00 Escitalopram Oxalate (Lexapro) 10 mg DAILY@13 PO Last administered on 13:40; Admin Dose 10 MG; Start 11/17/16 at 13:00 Oxycodone/ Acetaminophen (Percocet (5/ 325)) 1 tab Q4H PRN PO PAIN; Start 11/16 at 20:30 Magnesium Hydroxide (Milk Of Mag) 30 ml Q12H PRN PO CONSTIPATION; Start at 20:30 Lactulose (Enulose) 20 gm Q24H PRN PO CONSTIPATION Last administered on 08:47; Admin Dose 20 GM; Start 11/16/16 at 20:30 Senna (Senokot) 1 tab HS PO Last administered on 11/30/16 21:17; Admin Dose 1 TAB; Start 11/16/16 at 21:00 Docusate Sodium (Colace) 100 mg BID PO Last administered on 12/01/16 09:08; Admin Dose 100 MG; Start 11/16/16 at 21:00 Acetaminophen (Tylenol Tab) 650 mg Q4H PRN PO PAIN Last administered on 15:02; Admin Dose 650 MG; Start 11/16/16 at 20:30 Bisacodyl (Dulcolax Supp) 10 mg Q24H PRN [place] CONSTIPATION; Start 11/16/16 at 20: 30 Valsartan (Diovan) 80 mg DAILY PO ; Start 11/21/16 at 09:00; Status Future Hold Assessment/Plan Chief Complaint/Hosp Course 1. Fever, Sirs, ? sepsis -Source unclear ? Viral ? pna -Patient on antibiotics to complete course for 2 more days - Blood cultures, urine cultures negative today. - Chest x-ray shows possible infiltrate versus atelectasis -Appreciate IDs recommendation -Patient clinically improving. 2. 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 Improving Plan is to continue current treatment plan continue medical management continue low-dose aspirin continue PT OT per acute rehab 2. Hypotension, orthostatic -Resolved with IV fluids -Monitor 3. Dyslipidemia continue statin therapy 4. Aortic aneurysm status post surgical repair 5. BPH continue medical management 6. Seizure. Continue Dilantin 7. Depression continue Lexapro 8 GI DVT prophylaxis. Continue PPI and SCDs 9. Anemia monitor H&H levels Problems: SHANE NICOLAS MD Dec 01, 2016 12:26
[2016-12-01 13:00] VITALS: BP 133/76; PULSE 92
[2016-12-01] MEDS: ESCITALOPRAM 10 MG TAB PO SCH (13:00)
--- NOTE | 2016-12-01 13:15 | PN ---
Date/Time of Note Date/Time of Note DATE: 12/01/16 TIME: 13:10 Assessment/Plan VTE Prophylaxis VTE Prophylaxis Intervention: ambulation, other Lines/Catheters IV Catheter Type (from Nrs): Saline Lock Urinary Cath still in place: No Assessment/Plan Assessment/Plan 1. Acute CVA with bilateral cortical infarcts, with right greater than left weakness, impaired mobility/gait/ADLs/cognition. Continue PT/OT/ST. SBA for bed mobility and transfers. Continue secondary stroke prevention. 2. Hypertension. Monitor BP. Internal medicine following. 3. Status post aortic aneurysm repair 4. BPH. Continue bladder program. Continue medical management. 5. History of cervical fusion 6. History of bilateral hip surgery 7. Seizure disorder. On dilantin. 8. Depression. On lexapro. Monitor Mood. Subjective 24 Hr Interval Summary Free Text/Dictation Rehab progress note Subjective: Reports some anxiety overnight with increase in blood pressure. [place] better after given xanax. ROS: Denies chest pain, no shortness of breath, no abdominal pain, no nausea or vomiting. No headache. Reports constipation. Exam/Review of Systems Vital Signs Vitals Vital Signs Date Time Temp Pulse Resp B/P Pulse Ox O2 Delivery O2 Flow Rate FiO2 12/01/16 08:40 94 125/75 12/01/16 07:30 98.5 18 97 Intake and Output 11/30/16 11/30/16 12/01/16 15:00 23:00 07:00 Intake Total 890 ml Output Total 250 ml Balance 640 ml Exam General: Awake, alert, no acute distress CV: Regular rate, s1s2 Lungs clear to auscultation, no wheezing Abdomen soft, nontender Extremities without cyanosis, no edema Neuro: No focal changes. Follows simple commands. Results Result Diagram: 11/27/1660611/27/1607 Medications Medications Current Medications Aspirin (Aspirin) 81 mg DAILY PO Last administered on 12/01/16 09:08; Admin Dose 81 MG; Start 11/17/16 at 09:00 Atorvastatin Calcium (Lipitor) 10 mg DAILY@21 PO Last administered on 21:17; Admin Dose 10 MG; Start 11/16/16 at 21:00 Phenytoin (Dilantin) 100 mg Q8 PO Last administered on 12/01/16 07:21; Admin Dose 100 MG; Start 11/16/16 at 22:00 Dutasteride (Avodart) 0.5 mg HS PO Last administered on 11/30/16 21:17; Admin Dose 0.5 MG; Start 11/16/16 at 21:00 Escitalopram Oxalate (Lexapro) 10 mg DAILY@13 PO Last administered on 13:00; Admin Dose 10 MG; Start 11/17/16 at 13:00 Oxycodone/ Acetaminophen (Percocet (5/ 325)) 1 tab Q4H PRN PO PAIN; Start 11/16 at 20:30 Magnesium Hydroxide (Milk Of Mag) 30 ml Q12H PRN PO CONSTIPATION; Start at 20:30 Lactulose (Enulose) 20 gm Q24H PRN PO CONSTIPATION Last administered on 08:47; Admin Dose 20 GM; Start 11/16/16 at 20:30 Senna (Senokot) 1 tab HS PO Last administered on 11/30/16 21:17; Admin Dose 1 TAB; Start 11/16/16 at 21:00 Docusate Sodium (Colace) 100 mg BID PO Last administered on 12/01/16 09:08; Admin Dose 100 MG; Start 11/16/16 at 21:00 Acetaminophen (Tylenol Tab) 650 mg Q4H PRN PO PAIN Last administered on 15:02; Admin Dose 650 MG; Start 11/16/16 at 20:30 Bisacodyl (Dulcolax Supp) 10 mg Q24H PRN [place] CONSTIPATION; Start 11/16/16 at 20: 30 Valsartan (Diovan) 80 mg DAILY PO ; Start 11/21/16 at 09:00; Status Future Hold MIGUE RAYMUNDO Dec 01, 2016 13:15
[2016-12-01 18:23] VITALS: BP 134/77; PULSE 87
[2016-12-01 19:42] VITALS: BP 127/73; RESP 19
[2016-12-01] MEDS: ATORVASTATIN 10 MG TAB PO SCH (21:26)
[2016-12-01] MEDS: DUTASTERIDE 0.5 MG CAP PO SCH (21:28)
[2016-12-01] MEDS: SENNA TAB PO SCH (21:28)
[2016-12-02] MEDS: PHENYTOIN 100 MG CAP PO SCH ×3 (06:23→21:20)
[2016-12-02] MEDS: LACTULOSE 30ML CUP PO PRN (06:25)
[2016-12-02 08:00] VITALS: BP 152/72; PULSE 86; RESP 20
[2016-12-02] MEDS: ASPIRIN 81 MG TAB PO SCH (08:55)
[2016-12-02] MEDS: DOCUSATE SODIUM 100 MG CAP PO SCH ×3 (08:55→21:20)
[2016-12-02 09:00] VITALS: BP 128/78; PULSE 80
--- NOTE | 2016-12-02 10:18 | CONS ---
Date/Time of Note Date/Time of Note DATE: 12/02/16 TIME: 10:14 Consult Date/Type/Reason Admit Date/Time Nov 16, 2016 at 18:40 Initial Consult Date 11/20/16 Type of Consultation: im Ordering Provider: MINA FELIX DO Subjective pt. seen and examined no new c/o. tolerating pt.ot. had anxiety overnight. denies depression. Exam HEENT head is normocephalic pupils are reactive to light Cardiovascular heart is regular rate Lungs show diminished breath sounds at bases otherwise clear Abdomen soft nontender palpation rebound Extremities are negative for clubbing cyanosis no edema Dermatologically no rashes Musculoskeletal no joint effusion Neurologically patient has weakness right upper extremity left lower extremit Objective Vital Signs Date Time Temp Pulse Resp B/P Pulse Ox O2 Delivery O2 Flow Rate FiO2 12/01/16 19:42 98.7 91 19 127/73 98 Intake and Output 12/01/16 12/01/16 12/02/16 15:00 23:00 07:00 Intake Total 980 ml 300 ml Output Total 250 ml 752 ml Balance 730 ml -452 ml Results/Medications Medications Current Medications Aspirin (Aspirin) 81 mg DAILY PO Last administered on 12/02/16 08:55; Admin Dose 81 MG; Start 11/17/16 at 09:00 Atorvastatin Calcium (Lipitor) 10 mg DAILY@21 PO Last administered on 21:26; Admin Dose 10 MG; Start 11/16/16 at 21:00 Phenytoin (Dilantin) 100 mg Q8 PO Last administered on 12/02/16 06:23; Admin Dose 100 MG; Start 11/16/16 at 22:00 Dutasteride (Avodart) 0.5 mg HS PO Last administered on 12/01/16 21:28; Admin Dose 0.5 MG; Start 11/16/16 at 21:00 Escitalopram Oxalate (Lexapro) 10 mg DAILY@13 PO Last administered on 13:00; Admin Dose 10 MG; Start 11/17/16 at 13:00 Oxycodone/ Acetaminophen (Percocet (5/ 325)) 1 tab Q4H PRN PO PAIN; Start 11/16 at 20:30 Magnesium Hydroxide (Milk Of Mag) 30 ml Q12H PRN PO CONSTIPATION; Start at 20:30 Lactulose (Enulose) 20 gm Q24H PRN PO CONSTIPATION Last administered on 06:25; Admin Dose 20 GM; Start 11/16/16 at 20:30 Senna (Senokot) 1 tab HS PO Last administered on 12/01/16 21:28; Admin Dose 1 TAB; Start 11/16/16 at 21:00 Docusate Sodium (Colace) 100 mg BID PO Last administered on 12/01/16 21:25; Admin Dose 100 MG; Start 11/16/16 at 21:00 Acetaminophen (Tylenol Tab) 650 mg Q4H PRN PO PAIN Last administered on 15:02; Admin Dose 650 MG; Start 11/16/16 at 20:30 Bisacodyl (Dulcolax Supp) 10 mg Q24H PRN [place] CONSTIPATION; Start 11/16/16 at 20: 30 Valsartan (Diovan) 80 mg DAILY PO ; Start 11/21/16 at 09:00; Status Future Hold Assessment/Plan Chief Complaint/Hosp Course 1. Fever, Sirs, ? sepsis -Source unclear ? Viral ? pna -Patient on antibiotics to complete course - Blood cultures, urine cultures negative today. - Chest x-ray shows possible infiltrate versus atelectasis -Appreciate IDs recommendation -Patient clinically improving. 2. 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 Improving Plan is to continue current treatment plan continue medical management continue low-dose aspirin continue PT OT per acute rehab 2. Hypotension, orthostatic -Resolved with IV fluids -Monitor 3. Dyslipidemia continue statin therapy 4. Aortic aneurysm status post surgical repair 5. BPH continue medical management 6. Seizure. Continue Dilantin 7. Depression continue Lexapro 8 GI DVT prophylaxis. Continue PPI and SCDs 9. Anemia monitor H&H levels Problems: SHANE NICOLAS MD Dec 02, 2016 10:18
--- NOTE | 2016-12-02 10:18 | PN ---
Date/Time of Note Date/Time of Note DATE: 12/02/16 TIME: 10:14 Assessment/Plan VTE Prophylaxis VTE Prophylaxis Intervention: ambulation, other Lines/Catheters IV Catheter Type (from Nrs): Saline Lock Urinary Cath still in place: No Assessment/Plan Assessment/Plan 1. Acute CVA with bilateral cortical infarcts, with right>left weakness, impaired mobility/gait/ADLs/cognition. Continue PT/OT/ST. SBA for negotiating 12 steps with bilateral rails. Moderate assist for lower body dressing. Continue secondary stroke prevention per neurology. 2. Hypertension. Continue medical management per internal medicine. 3. Status post aortic aneurysm repair 4. BPH. Continue medical management. 5. History of cervical fusion 6. History of bilateral hip surgery 7. Seizure disorder. On dilantin. Maintain seizure precautions. 8. Depression. Continue to monitor mood. Continue lexapro Subjective 24 Hr Interval Summary Free Text/Dictation Rehab progress note Subjective: No acute complaints. ROS: Denies headache, no chest pain, nos shortness of breath, no abdominal pain , no nausea, no vomiting, no chills. Had bowel movement yesterday per nursing. Exam/Review of Systems Vital Signs Vitals Vital Signs Date Time Temp Pulse Resp B/P Pulse Ox O2 Delivery O2 Flow Rate FiO2 12/01/16 19:42 98.7 91 19 127/73 98 Intake and Output 12/01/16 12/01/16 12/02/16 15:00 23:00 07:00 Intake Total 980 ml 300 ml Output Total 250 ml 752 ml Balance 730 ml -452 ml Exam General: Awake, alert, no acute distress CV: Regular rate, s1s2 Lungs clear to auscultation, no wheezing Abdomen soft, nontender Extremities without cyanosis, no edema Neuro: No focal changes. Follows simple commands. Medications Medications Current Medications Aspirin (Aspirin) 81 mg DAILY PO Last administered on 12/02/16 08:55; Admin Dose 81 MG; Start 11/17/16 at 09:00 Atorvastatin Calcium (Lipitor) 10 mg DAILY@21 PO Last administered on 21:26; Admin Dose 10 MG; Start 11/16/16 at 21:00 Phenytoin (Dilantin) 100 mg Q8 PO Last administered on 12/02/16 06:23; Admin Dose 100 MG; Start 11/16/16 at 22:00 Dutasteride (Avodart) 0.5 mg HS PO Last administered on 12/01/16 21:28; Admin Dose 0.5 MG; Start 11/16/16 at 21:00 Escitalopram Oxalate (Lexapro) 10 mg DAILY@13 PO Last administered on 13:00; Admin Dose 10 MG; Start 11/17/16 at 13:00 Oxycodone/ Acetaminophen (Percocet (5/ 325)) 1 tab Q4H PRN PO PAIN; Start 11/16 at 20:30 Magnesium Hydroxide (Milk Of Mag) 30 ml Q12H PRN PO CONSTIPATION; Start at 20:30 Lactulose (Enulose) 20 gm Q24H PRN PO CONSTIPATION Last administered on 06:25; Admin Dose 20 GM; Start 11/16/16 at 20:30 Senna (Senokot) 1 tab HS PO Last administered on 12/01/16 21:28; Admin Dose 1 TAB; Start 11/16/16 at 21:00 Docusate Sodium (Colace) 100 mg BID PO Last administered on 12/01/16 21:25; Admin Dose 100 MG; Start 11/16/16 at 21:00 Acetaminophen (Tylenol Tab) 650 mg Q4H PRN PO PAIN Last administered on 15:02; Admin Dose 650 MG; Start 11/16/16 at 20:30 Bisacodyl (Dulcolax Supp) 10 mg Q24H PRN [place] CONSTIPATION; Start 11/16/16 at 20: 30 Valsartan (Diovan) 80 mg DAILY PO ; Start 11/21/16 at 09:00; Status Future Hold MIGUE RAYMUNDO Dec 02, 2016 10:18
[2016-12-02] MEDS: ESCITALOPRAM 10 MG TAB PO SCH (12:59)
[2016-12-02 20:54] VITALS: BP 149/72; RESP 18
[2016-12-02] MEDS: DUTASTERIDE 0.5 MG CAP PO SCH (21:20)
[2016-12-02] MEDS: SENNA TAB PO SCH (21:20)
[2016-12-02] MEDS: ATORVASTATIN 10 MG TAB PO SCH (21:21)
[2016-12-03] MEDS: PHENYTOIN 100 MG CAP PO SCH ×3 (06:20→20:41)
[2016-12-03 07:00] VITALS: BP_SYST 148; BP_SYST 152; BP_DIAS 74; BP_DIAS 76; PULSE 76; PULSE 78; RESP 18
[2016-12-03 07:30] VITALS: BP 153/78; RESP 18
[2016-12-03] MEDS: DOCUSATE SODIUM 100 MG CAP PO SCH ×2 (09:10→20:40)
[2016-12-03] MEDS: ASPIRIN 81 MG TAB PO SCH (09:11)
--- NOTE | 2016-12-03 11:51 | PN ---
Date/Time of Note Date/Time of Note DATE: 12/03/16 TIME: 11:48 Assessment/Plan Lines/Catheters IV [facility] Saline Lock Urinary Cath still in place: No Assessment/Plan Chief Complaint/Hosp Course 1. Status post sepsis -Source unclear ? Viral ? pna -Patient completed antibiotic course. - Blood cultures, urine cultures negative -Appreciate IDs recommendation -Patient clinically improving. 2. 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 Improving Plan is to continue current treatment plan continue medical management continue low-dose aspirin continue PT OT per acute rehab 2. Hypertension -Resume low-dose losartan with blood pressure parameters 3. Dyslipidemia continue statin therapy 4. Aortic aneurysm status post surgical repair 5. BPH continue medical management 6. Seizure. Continue Dilantin 7. Depression continue Lexapro 8 GI DVT prophylaxis. Continue PPI and SCDs 10. Anemia monitor H&H levels Problems: Subjective 24 Hr Interval Summary Free Text/Dictation Patient seen and examined no events overnight Exam/Review of Systems Vital Signs Vitals Vital Signs Date Time Temp Pulse Resp B/P Pulse Ox O2 Delivery O2 Flow Rate FiO2 12/03/16 07:00 76 18 152/76 Room Air 12/02/16 20:54 99.0 97 Intake and Output 12/02/16 12/02/16 12/03/16 15:00 23:00 07:00 Intake Total 600 ml 350 ml Output Total 450 ml 900 ml Balance 150 ml -550 ml Exam HEENT head is normocephalic pupils are reactive to light Cardiovascular heart is regular rate Lungs show diminished breath sounds at bases otherwise clear Abdomen soft nontender palpation rebound Extremities are negative for clubbing cyanosis no edema Dermatologically no rashes Musculoskeletal no joint effusion Neurologically patient has weakness right upper extremity left lower extremit Medications Medications Current Medications Aspirin (Aspirin) 81 mg DAILY PO Last administered on 12/03/16 09:11; Admin Dose 81 MG; Start 11/17/16 at 09:00 Atorvastatin Calcium (Lipitor) 10 mg DAILY@21 PO Last administered on 21:21; Admin Dose 10 MG; Start 11/16/16 at 21:00 Phenytoin (Dilantin) 100 mg Q8 PO Last administered on 12/03/16 06:20; Admin Dose 100 MG; Start 11/16/16 at 22:00 Dutasteride (Avodart) 0.5 mg HS PO Last administered on 12/02/16 21:20; Admin Dose 0.5 MG; Start 11/16/16 at 21:00 Escitalopram Oxalate (Lexapro) 10 mg DAILY@13 PO Last administered on 12:59; Admin Dose 10 MG; Start 11/17/16 at 13:00 Oxycodone/ Acetaminophen (Percocet (5/ 325)) 1 tab Q4H PRN PO PAIN; Start 11/16 at 20:30 Magnesium Hydroxide (Milk Of Mag) 30 ml Q12H PRN PO CONSTIPATION; Start at 20:30 Lactulose (Enulose) 20 gm Q24H PRN PO CONSTIPATION Last administered on 06:25; Admin Dose 20 GM; Start 11/16/16 at 20:30 Senna (Senokot) 1 tab HS PO Last administered on 12/02/16 21:20; Admin Dose 1 TAB; Start 11/16/16 at 21:00 Docusate Sodium (Colace) 100 mg BID PO Last administered on 12/03/16 09:10; Admin Dose 100 MG; Start 11/16/16 at 21:00 Acetaminophen (Tylenol Tab) 650 mg Q4H PRN PO PAIN Last administered on 15:02; Admin Dose 650 MG; Start 11/16/16 at 20:30 Bisacodyl (Dulcolax Supp) 10 mg Q24H PRN [place] CONSTIPATION; Start 11/16/16 at 20: 30 Valsartan (Diovan) 80 mg DAILY PO ; Start 11/21/16 at 09:00; Status Future Hold WILFREDO HALLMAN DO Dec 03, 2016 11:50
[2016-12-03] MEDS: ESCITALOPRAM 10 MG TAB PO SCH (12:39)
[2016-12-03] MEDS: LOSARTAN 50 MG TAB PO SCH (12:39)
--- NOTE | 2016-12-03 13:09 | CONS ---
Date/Time of Note Date/Time of Note DATE: 12/03/16 TIME: 13:07 Consult Date/Type/Reason Admit Date/Time Nov 16, 2016 at 18:40 Type of Consultation: im Ordering Provider: MINA FELIX DO Objective Vital Signs Date Time Temp Pulse Resp B/P Pulse Ox O2 Delivery O2 Flow Rate FiO2 12/03/16 07:00 76 18 152/76 Room Air 12/02/16 20:54 99.0 97 Intake and Output 12/02/16 12/02/16 12/03/16 15:00 23:00 07:00 Intake Total 600 ml 350 ml Output Total 450 ml 900 ml Balance 150 ml -550 ml INTERDISCIPLINARY TEAM CONFERENCE BOWEL- Cont BLADDER-Cont SKIN- intact OT- DRESSING-standby assist BATHING-standby assist TOILETING-standby assist PT- BED MOBILITY-standby assist-standby assist TRANSFERS-standby assist AMBULATION-standby assist W.C. MOBILITY A/P- Interdisciplinary team conference held today. Please see interdisciplinary sheet. Working toward d.c. on 12/04 with post discharge follow up of physical therapy, occupational therapy, and nursing. Functional Impact of Comorbidity: Patient's weakness has affected his mobility , but he has had significant improvement in strength, and resultantly improving function. Results/Medications Medications Current Medications Aspirin (Aspirin) 81 mg DAILY PO Last administered on 12/03/16 09:11; Admin Dose 81 MG; Start 11/17/16 at 09:00 Atorvastatin Calcium (Lipitor) 10 mg DAILY@21 PO Last administered on 21:21; Admin Dose 10 MG; Start 11/16/16 at 21:00 Phenytoin (Dilantin) 100 mg Q8 PO Last administered on 12/03/16 06:20; Admin Dose 100 MG; Start 11/16/16 at 22:00 Dutasteride (Avodart) 0.5 mg HS PO Last administered on 12/02/16 21:20; Admin Dose 0.5 MG; Start 11/16/16 at 21:00 Escitalopram Oxalate (Lexapro) 10 mg DAILY@13 PO Last administered on 12:39; Admin Dose 10 MG; Start 11/17/16 at 13:00 Oxycodone/ Acetaminophen (Percocet (5/ 325)) 1 tab Q4H PRN PO PAIN; Start 11/16 at 20:30 Magnesium Hydroxide (Milk Of Mag) 30 ml Q12H PRN PO CONSTIPATION; Start at 20:30 Lactulose (Enulose) 20 gm Q24H PRN PO CONSTIPATION Last administered on 06:25; Admin Dose 20 GM; Start 11/16/16 at 20:30 Senna (Senokot) 1 tab HS PO Last administered on 12/02/16 21:20; Admin Dose 1 TAB; Start 11/16/16 at 21:00 Docusate Sodium (Colace) 100 mg BID PO Last administered on 12/03/16 09:10; Admin Dose 100 MG; Start 11/16/16 at 21:00 Acetaminophen (Tylenol Tab) 650 mg Q4H PRN PO PAIN Last administered on 15:02; Admin Dose 650 MG; Start 11/16/16 at 20:30 Bisacodyl (Dulcolax Supp) 10 mg Q24H PRN [place] CONSTIPATION; Start 11/16/16 at 20: 30 Valsartan (Diovan) 80 mg DAILY PO ; Start 11/21/16 at 09:00; Status Future Hold Losartan Potassium (Cozaar) 50 mg DAILY PO Last administered on 12/03/16 12:39 ; Admin Dose 50 MG; Start 12/03/16 at 12:00 HERNANDEZ PASTRANA MD Dec 03, 2016 13:09 HERNANDEZ PASTRANA MD Dec 03, 2016 13:09
--- NOTE | 2016-12-03 13:36 | PN ---
DATE: 11/22/2016 SUBJECTIVE DATA: The patient is stable. No longer complaining of dizziness upon standing. His orthostatic hypotension has resolved. No other events noted. OBJECTIVE DATA: VITAL SIGNS: Blood pressure 127/70, respirations 18, pulse 78, temperature 99.2. HEENT: Head is normocephalic. NECK: Supple. CARDIAC: Heart is a regular rate. RESPIRATORY: Lungs show diminished breath sounds at the base. ABDOMEN: Soft, nontender to palpation. There is no guarding. EXTREMITIES: Negative for clubbing or cyanosis. No edema. DERMATOLOGIC: No rashes. MUSCULOSKELETAL: No joint effusion. NEUROLOGIC: No focal deficits. MEDICATIONS: Reviewed. LABORATORY AND DIAGNOSTIC DATA: Laboratory data has been reviewed. No further labs. ASSESSMENT AND PLAN: 1. Sepsis secondary to possible pneumonia. Continue current antibiotic regimen. The patient is clinically improving. Followup with Infectious Disease. 2. Orthostatic hypotension, resolved. The patient is status post 3 L of normal saline. Blood pressure medications have been held. Will continue to monitor and discontinue IV fluids. 3. Acute cerebrovascular accident with a distal bilateral cortical infarct. The patient has noted right upper extremity weakness. Will continue physical therapy. 4. Dyslipidemia. Continue statin therapy. 5. Status post aortic aneurysm repair. 6. Benign prostatic hypertrophy. Continue medical management. 7. Seizure disorder. Continue Dilantin. 8. Depression. Continue Lexapro. Dictated By: Tom Kim DO /radha/xavier /Document#: [id number]
[2016-12-03] MEDS: DUTASTERIDE 0.5 MG CAP PO SCH (20:37)
[2016-12-03] MEDS: ATORVASTATIN 10 MG TAB PO SCH (20:37)
[2016-12-03] MEDS: SENNA TAB PO SCH (20:41)
[2016-12-04] MEDS: PHENYTOIN 100 MG CAP PO SCH ×2 (05:56→13:01)
[2016-12-04 05:59] VITALS: BP 145/77; PULSE 86; RESP 18
[2016-12-04 08:00] VITALS: BP 138/74; RESP 18
[2016-12-04] MEDS: DOCUSATE SODIUM 100 MG CAP PO SCH (09:28)
[2016-12-04] MEDS: ASPIRIN 81 MG TAB PO SCH (09:28)
[2016-12-04] MEDS: LOSARTAN 50 MG TAB PO SCH (09:28)
[2016-12-04] MEDS: ESCITALOPRAM 10 MG TAB PO SCH (13:01)
== END 2016-12-04 16:03 | disposition home health service (06) | DRG 56 ==
LOC: VRC 18:40
PROVIDERS: ADMIT Physical Medicine & Rehabilitation; ATTEND Internal Medicine Nephrology
PROC: F07Z5FZ Bed Mobility Treatment using Assistive, Adaptive, Supportive or Protective Equipment (ICD-10-PCS; principal; 2016-11-16)
PROC: F07Z8FZ Transfer Training Treatment using Assistive, Adaptive, Supportive or Protective Equipment (ICD-10-PCS; 2016-11-16)
PROC: F07Z9FZ Gait Training/Functional Ambulation Treatment using Assistive, Adaptive, Supportive or Protective Equipment (ICD-10-PCS; 2016-11-16)
PROC: F08Z2FZ Grooming/Personal Hygiene Treatment using Assistive, Adaptive, Supportive or Protective Equipment (ICD-10-PCS; 2016-11-16)
PROC: F08Z0FZ Bathing/Showering Techniques Treatment using Assistive, Adaptive, Supportive or Protective Equipment (ICD-10-PCS; 2016-11-16)
PROC: F08Z1FZ Dressing Techniques Treatment using Assistive, Adaptive, Supportive or Protective Equipment (ICD-10-PCS; 2016-11-16)
DX: I69.365 Other paralytic syndrome following cerebral infarction, bilateral (principal); A41.9 Sepsis, unspecified organism; J12.9 Viral pneumonia, unspecified; I69.391 Dysphagia following cerebral infarction; R31.0 Gross hematuria; D64.9 Anemia, unspecified; R13.10 Dysphagia, unspecified; I95.1 Orthostatic hypotension; N40.0 Benign prostatic hyperplasia without lower urinary tract symptoms; G40.909 Epilepsy, unspecified, not intractable, without status epilepticus; I10 Essential (primary) hypertension; E78.5 Hyperlipidemia, unspecified; F32.9 Major depressive disorder, single episode, unspecified; Z98.890 Other specified postprocedural states; Z98.1 Arthrodesis status
CPT/HCPCS: 71010; 80048; 80053; 81001; 81003; 83735; 84100; 84145; 85025; 87040; 87081; 87086; 92507; 92523; 92610; 97110; 97112; 97116; 97150; 97163; 97167; 97530; 97535; 97542; J0696; J7030; L3260-LT